=== PATIENT | female | born 1945 | race Caucasian/White ===

== ENCOUNTER 2024-06-12 12:26 | Inpatient (IN) | payer MEDICARE, OTHER ==
[~2024-06-12] VITALS: Ht 167.6 cm; Wt 103.0 kg
[2024-06-12] MEDS: SODIUM CHLORIDE 0.9% 500 ML IV ONE (13:15)
--- NOTE | 2024-06-12 13:21 | ED.PDOC ---
History of Present Illness HPI Comments 79-year-old female who comes in with chief complaint of a syncopal episode. The patient's son-in-law actually called the paramedics and the patient was transported to our facility. The patient was sitting in the restroom on the toilet and as she was straining she had a syncopal episode. It was unknown how long it lasted but she stated that she woke up and she had some left arm pain. She denies any chest pain or shortness for breath. There has been no headache. Chief Complaint: Syncope Time Seen by MD: 12:43 Reviewed Notes: Nurses Notes, Spacer Type Bar And Segment Notes, Medications, Allergies (Allergies to sulfa) Allergies: Uncoded Allergies: SULFA (Allergy, Unknown, 06/12/24) Information Source: Patient, Emergency Med Personnel Mode of Arrival: EMS Severity: Moderate Timing: Minutes Duration: Intermittent Prehospital treatment: Bread Wrapper, IVF Associated signs and symptoms Generalized weakness, syncope Past Medical History PAST MEDICAL HISTORY: Cancer (Breast cancer next), DM, High Lipids, HTN Surgical History: Cholecystectomy, , Denies all surgeries Surgical History (Other): Lumpectomy MEDICAL COLLECTOR History: No Pertinent MEDICAL COLLECTOR History Family History Family History: No family hx of DM, No family hx of Heart nathaniel Social History Smoker: Non-Smoker Alcohol: Denies ETOH Use Drugs: Denies Drug Use Lives In: Home Constitutional: denies: chills, diaphoresis, fatigue, fever, malaise, sweats, weakness, others EENTM: denies: blurred vision, double vision, ear bleeding, ear discharge, ear drainage, ear pain, ear ringing, eye pain, eye redness, hearing loss, mouth pain, mouth swelling, nasal discharge, nose bleeding, nose congestion, nose pain, photophobia, tearing, throat pain, throat swelling, voice changes, others Respiratory: denies: cough, hemoptysis, orthopnea, SOB at rest, shortness of breath, SOB with excertion, stridor, wheezing, others Cardiovascular: reports: syncope; denies: chest pain, dizzy spells, diaphoresis, Dyspnea on exertion, edema, irregular heart beat, left arm pain, lightheadedness, palpitations, PND, others Gastrointestinal: denies: abdomen distended, abdominal pain, blood streaked bowels, constipated, diarrhea, dysphagia, difficulty swallowing, hematemesis, melena, nausea, poor appetite, poor fluid intake, rectal bleeding, rectal pain, vomiting, others Genitourinary: denies: abnormal vagina bleeding, burning, dyspareunia, dysuria, flank pain, frequency, hematuria, incontinence, pain, , vagina discharge, urgency, others Neurological: denies: dizziness, fainting, headache, left sided numbness, left sided weakness, numbness, paresthesia, pre-existing deficit, right sided numbness, right sided weakness, seizure, speech problems, tingling, tremors, weakness, others Musculoskeletal: reports: others (Left arm pain); denies: back pain, gout, joint pain, joint swelling, muscle pain, muscle stiffness, neck pain Integumetry: denies: bruises, change in color, change in hair/nails, dryness, laceration, lesions, lumps, rash, wounds, others Allergic/Immunocompromised: denies: Difficulty Healing, Frequent Infections, Hives, Itching, others Hematologic/Lymphatic: denies: anemia, blood clots, easy bleeding, easy bruising, swollen glands, others Endocrine: denies: excessive hunger, excessive sweating, excessive thirst, excessive urination, flushing, intolerance to cold, intolerance to heat, unexplained weight gain, unexplained weight loss, others Psychiatric: denies: anxiety, bipolar disorder, depression, hopeless, panic disorder, schizophrenia, sleepless, suicidal, others Physical Exam General Appearance: Moderate Distress HEENT: Normal ENT Inspection, Pharynx Normal, TMs Normal Neck: Full Range of Motion, Non-Tender, Normal, Normal Inspection Respiratory: Chest Non-Tender, Lungs Clear, No Accessory Muscle Use, No Respiratory Distress, Normal Breath Sounds Cardiovascular: No Edema, No JVD, No Murmur, No Gallop, Normal Peripheral Pulses, Regular Rate/Rhythm Breast Exam: Deferred Gastrointestinal: No Organomegaly, Non Tender, No Pulsatile Mass, Normal Bowel Sounds, Soft Genitalia: Deferred Pelvic: Deferred Rectal: Deferred Extremities: No calf tenderness, Normal capillary refill, No pedal edema, Tender (Tenderness to the left humeral area with decreased range of motion) Musculoskeletal : Apperance: Normal Neurologic: Alert, lacing presser II-XII nml as Tested, Motor Weakness, Normal Affect, Normal Mood, No Sensory Deficits Cerebellar Function: Normal Reflexes: Normal Skin: Dry, Normal Color, Warm Lymphatic: No Adenopathy Was a procedure done? Was a procedure done?: No EKG EKG : Pulse Rate (adult): 58 Mars: Normal Cardiac Rhythm: NSR Block: None ST: Nonsp (low Voltage) Differential Dx Considerations may include: Syncope, generalized weakness, electrolyte imbalance X-Ray, Labs, Meds, VS Vital Signs Date Time Temp Pulse Resp B/P (MAP) Pulse Ox O2 Delivery O2 Flow Rate FiO2 06/12/24 20:27 61 16 124/61 (82) 100 06/12/24 18:00 64 16 121/58 (79) 100 06/12/24 17:29 97.8 58 16 120/54 (76) 100 97.8 06/12/24 16:27 55 16 126/60 06/12/24 16:17 66 06/12/24 15:57 63 20 103/63 06/12/24 15:47 63 20 99 Room Air* 0 21 06/12/24 15:47 97.8 63 20 103/63 (76) 100 97.8 06/12/24 13:21 58 06/12/24 12:36 98.6 63 16 130/82 (98) 96 06/12/24 12:26 58 Lab Test 06/12/24 19:08 06/12/24 17:32 06/12/24 17:04 06/12/24 14:10 Range/Units Troponin I High Sensitivity 15 12 10 </=34 ng/L POC Glucose 280 H 70-106 mg/dl White Blood Count 18.4 H 4.4-10.8 10^3/uL Red Blood Count 4.98 4.0-5.20 10^6/uL Hemoglobin 15.0 12.2-16.2 g/dL Hematocrit 45.1 36.0-46.0 % Mean Corpuscular Volume 90.5 80.0-100.0 fL Mean Corpuscular Hemoglobin 30.0 28.0-32.0 pg Mean Corpuscular Hemoglobin Concent 33.2 32.0-36.0 g/dL Red Cell Distribution Width 14.4 H 11.8-14.3 % Platelet Count 259 140-450 10^3/uL Mean Platelet Volume 9.0 6.9-10.8 fL Neutrophils (%) (Auto) 92.0 H 37.0-80.0 % Lymphocytes (%) (Auto) 5.3 L 10.0-50.0 % Monocytes (%) (Auto) 2.1 0.0-12.0 % Eosinophils (%) (Auto) 0.2 0.0-7.0 % Basophils (%) (Auto) 0.4 0.0-2.0 % Neutrophils # (Auto) 16.9 H 1.6-8.6 10 ^3/uL Lymphocytes # (Auto) 1.0 0.4-5.4 10 ^3/uL Monocytes # (Auto) 0.4 0-1.3 10 ^3/uL Eosinophils # (Auto) 0 0-0.8 10 ^3/uL Basophils # (Auto) 0.1 0-0.2 10 ^3/uL Nucleated Red Blood Cells 0.0 % Sodium Level 137 136-145 mmol/L Potassium Level 4.1 3.5-5.1 mmol/L Chloride Level 100 98-107 mmol/L Carbon Dioxide Level 26 20-31 mmol/L Anion Gap 11 5-15 Blood Urea Nitrogen 44 H 9-23 mg/dL Creatinine 2.01 H 0.550-1.02 mg/dL Glomerular Filtration Rate Calc 25 >90 mL/min BUN/Creatinine Ratio 21.9 H 10.0-20.0 Serum Glucose 341 H 74-106 mg/dL Calcium Level 10.8 H 8.7-10.4 mg/dL Current Medications Medications (Trade) Dose Ordered Sig/Michelle Route Start Time Stop Time Status Last Admin Sodium Chloride 500 ml @ 500 mls/hr Q1H ONCE IV 06/12/24 13:15 06/12/24 14:14 DC 06/12/24 13:15 Morphine Sulfate 2 mg ONCE ONCE IV 06/12/24 15:45 06/12/24 15:46 DC 06/12/24 15:57 Ondansetron HCl (Zofran) 4 mg ONCE ONCE IV 06/12/24 15:45 06/12/24 15:46 DC 06/12/24 15:58 TECHNIQUE: XY L HUMERUS XRAY Comparison: None FINDINGS/IMPRESSION: : Anterior shoulder dislocation. Comminuted and displaced fracture of the proximal humeral metaphysis. IV Hep-Lock was established The patient was given normal saline as a 500 cc bolus The patient was given morphine 2 mg IV push for the pain The patient was given Zofran 4 mg IV push for the nausea The BUN is 44 and the creatinine is 2.01 The patient was hyperglycemic at 341 The troponin level is negative The CBC shows an elevated white blood cell count of 18.4 which is most likely secondary to the fall An orthopedic surgery consult was obtained. We are concerned about trying to shows secondary to the humeral fracture. At this time, the patient will be admitted. Images Reviewed?: Images reviewed and evaluated by me Time of 1ST Reevaluation: 13:21 Reevaluation 1ST: Unchanged Patient Education/Counseling: Diagnosis, Treatment, Prognosis Family Education/Counseling: No Family Present Departure 1 Departure Time of Disposition: 20:38 Impression: Primary Impression: Autonomic dysfunction Additional Impressions: Anterior dislocation of left shoulder Qualified Codes: S43.015A - Anterior dislocation of left humerus, initial encounter Humeral fracture Qualified Codes: S42.222A - 2-part displaced fracture of surgical neck of left humerus, initial encounter for closed fracture Disposition: ADMITTED INPATIENT Admit to: Tele Condition: Fair Critical Care Note Critical Care Time?: Yes (45 min-critical care time only) Stability Stability form required: Yes Unstable for transfer: Telemetry monitoring (Telemetry monitoring required), ED Physician Assesment (Clinical assesment) Heart Score Heart Score: Heart Score Response (Comments) Value History N/A 0 EKG N/A 0 Age N/A 0 Risk Factors N/A 0 Troponin N/A 0 Total 0 I personally scribed for RAMON FREDERICK MD ([email or web address]) on 06/12/24 at 14:01. Electronically submitted by Olga Ferraro ([email or web address]). RAMON FREDERICK MD Jun 12, 2024 13:21
--- NOTE | 2024-06-12 13:52 | DVH ---
CLINICAL INDICATION: pain TECHNIQUE: XY L HUMERUS XRAY Comparison: None FINDINGS/IMPRESSION: : Anterior shoulder dislocation. Comminuted and displaced fracture of the proximal humeral metaphysis.
[2024-06-12 14:27] LABS: Basophils # (auto) 0.1 10 ^3/uL (0-0.2); Basophils % (auto) 0.4 % (0.0-2.0); Eosinophils # (auto) 0 10 ^3/uL (0-0.8); Eosinophils % (auto) 0.2 % (0.0-7.0); Hematocrit 45.1 % (36.0-46.0); Lymphocytes % (auto) 5.3 % (10.0-50.0); Mean Corpuscular Hgb Conc. 33.2 g/dL (32.0-36.0); Mean Corpuscular Volume 90.5 fL (80.0-100.0); Monocytes # (auto) 0.4 10 ^3/uL (0-1.3); Monocytes % (auto) 2.1 % (0.0-12.0); Neutrophils # (auto) 16.9 10 ^3/uL (1.6-8.6); Platelet Count (auto) 259 10^3/uL (140-450); Red Blood Cells 4.98 10^6/uL (4.0-5.20); Red Cell Distribution Width 14.4 % (11.8-14.3); White Blood Cell 18.4 10^3/uL (4.4-10.8)
[2024-06-12 14:52] LABS: Chloride 100 mmol/L (98-107); Potassium 4.1 mmol/L (3.5-5.1); Sodium 137 mmol/L (136-145)
[2024-06-12 14:53] LABS: Anion Gap 11 (5-15); Carbon Dioxide 26 mmol/L (20-31)
[2024-06-12 14:58] LABS: BUN/Creatinine Ratio 21.9 (10.0-20.0)
[2024-06-12 15:04] LABS: Blood Urea Nitrogen 44 mg/dL (9-23); Calcium 10.8 mg/dL (8.7-10.4); Glucose 341 mg/dL (74-106)
--- NOTE | 2024-06-12 15:17 | ECG ---
[facility] Test Date: 2024-06-12 Test Time: 12:25:21 Pat Name: JESS BRAN Department: ED Room: [address] [place] [address] Gender: F House Calls Nurse Practitioner: SETH : 1945 Requested By: RAMON FREDERICK Order Number: [id number] Reading MD: Joshua Albarado Measurements Intervals [place] Rate: 58 P: -6 MO: 147 QRS: 22 QRSD: 106 T: 43 QT: 448 QTc: 441 Interpretive Statements Sinus rhythm Low voltage, precordial leads Minimal ST elevation, inferior leads Electronically Signed On 06-12-2024 22:27:32 PST by Joshua Albarado Please click the below link to view image of tracing.
[2024-06-12 15:47] VITALS: PULSE 63; RESP 20; O2SAT 99
[2024-06-12] MEDS: MORPHINE SULFATE INJ 2 MG/ml SYRG IV ONE (15:57)
[2024-06-12] MEDS: ONDANSETRON HCL 4 MG/2 ML VIAL IV ONE (15:58)
[2024-06-12 20:00] VITALS: PULSE 76; RESP 18; O2SAT 100
[2024-06-12] MEDS ORDERED: ACETAMINOPHEN 325 MG TAB PO PRN (21:00)
[2024-06-12] MEDS ORDERED: DEXTROSE (50%) 50ML SYRG IV PRN (21:00)
[2024-06-12] MEDS ORDERED: ONDANSETRON HCL 4 MG/2 ML VIAL IV PRN (21:00)
[2024-06-12] MEDS ORDERED: DOCUSATE SOD 100 MG CAP PO PRN (21:00)
[2024-06-12] MEDS ORDERED: hydrALAZINE HCL 20 MG/ML VL IV PRN (21:00)
[2024-06-12] MEDS: ETOMIDATE (2MG/ML) 20ML VIAL IV ONE (21:38)
--- NOTE | 2024-06-12 21:59 | DVHHP2 ---
History of Present Illness Reason for Visit: Syncopal episode History of Present Illness The patient is a 79-year-old female with past medical history of breast cancer, DM, hyperlipidemia, and hypertension who presented to [facility] ED for evaluation of syncopal episode. As reported, depression was sitting in the bathroom on the toilet and had a syncopal episode, so EMS were called by son-in-law. Patient was seen and evaluated in the ED, laboratory data shows WBC 18.4, platelets 259, sodium 137, potassium 4.1, BUN 44, creatinine 2.01, GFR 25, glucose 341, blood pressure 124/61, heart rate 64, temperature 97.8 F, O2 saturation 99% on room air. Left humerus x-ray revealing comminuted and di splaced fracture of the proximal humeral metaphysis, anterior shoulder dislocation. Patient was started on IV antibiotic regimen Rocephin, please see medication orders section in the computer. On my assessment, patient denies chest pain, no headache, no dizziness, no diaphoresis, no shortness of breaths, no nausea, no vomiting, no fever, no chills. Patient was admitted for further evaluation and medical management. Past Medical History Cancer (Breast cancer), DM, High Lipids, HTN Past Surgical History Cholecystectomy, , Lumpectomy Family History Reviewed, noncontributory to the management of this case. Past Social History The patient lives at home, denies smoking, alcohol or illicit drugs abuse. Review of Systems Constitutional: Yes: Weakness; No: Fever, Chills, Sweats, Malaise, Other Eyes: No: Pain, Vision change, Conjunctivae inflammation, Eyelid inflammation, Other, Redness ENT: No: Ear pain, Ear discharge, Nose pain, Nose discharge, Nose congestion, Mouth pain, Mouth swelling, Throat pain, Throat swelling, Other Respiratory: No: Cough, Dry, Shortness of breath, SOB with excertion, Wheezing, Hemoptysis, Pleuritic Pain, Sputum, Wheezing, Other Cardiovascular: Other (Syncope); No: Chest Pain, Palpitations, Orthopnea, Paroxysmal Noc. Dyspnea, Edema, Lt Headedness Gastrointestinal: No: Nausea, Vomiting, Abdominal Pain, Diarrhea, Constipation, Melena, Hematochezia, Other Genitourinary: No Dysuria, No Frequency, No Incontinence, No Hematuria, No Retention, No Other Musculoskeletal: other (Left arm pain) Skin: No: Rash, Lesions, Jaundice, Bruising, Other Neurological: No: Weakness, Numbness, Incoordination, Change in speech, Confusion, Seizures, Other Allergies: Coded Allergies: Penicillins (Verified Allergy, Unknown, UNKNOWN, 06/13/24) Uncoded Allergies: SULFA (Allergy, Unknown, 06/12/24) Medications Current Medications Medications Dose Ordered Sig/Michelle Route Start Time Stop Time Status Last Admin Dose Admin Atorvastatin Calcium 20 mg HS PO 06/12/24 22:00 Hydralazine HCl 10 mg Q6HP PRN IV 06/12/24 21:00 Ceftriaxone Sodium 50 ml @ 100 mls/hr DAILY@09 IV 06/13/24 09:00 Diagnostic Test (Pha) 1 strip IQ4HR 06/13/24 00:00 Insulin Human Regular IQ4HR SC 06/13/24 00:00 Dextrose 50 ml UD PRN IV 06/12/24 21:00 Sodium Chloride 1,000 ml @ 60 mls/hr [id number] IV 06/12/24 21:00 Acetaminophen/ Hydrocodone Bitart 1 tab Q4HP PRN PO 06/12/24 21:00 Ondansetron HCl 4 mg Q4HP PRN IV 06/12/24 21:00 Docusate Sodium 100 mg BIDPRN PRN PO 06/12/24 21:00 Enoxaparin Sodium 30 mg DAILY SC 06/13/24 10:00 Acetaminophen 650 mg Q6HP PRN PO 06/12/24 21:00 Exam Vital Signs Vital Signs Date Time Temp Pulse Resp B/P (MAP) Pulse Ox O2 Delivery O2 Flow Rate FiO2 06/12/24 20:27 61 16 124/61 (82) 100 06/12/24 17:29 97.8 97.8 06/12/24 15:47 Room Air* 0 21 General Appearance: Alert, Oriented X3, Cooperative, No acute distress HEENT: Atraumatic, PERRLA, EOMI, Mucous membr. moist/pink Respiratory: Clear to auscultation, Normal air movement Cardiovascular: Regular rate, Normal S1, Normal S2, No murmurs Abdominal: Normal bowel sounds, Soft, No tenderness, No hepatospenomegaly, No masses Extremities: No clubbing, No cyanosis, No edema, Normal pulses, No tenderness/swelling Skin: No rashes, No breakdown, No significant lesion Neuro: Normal speech, Normal tone, Sensation intact, Cranial nerves 3-12 NL, Reflexes 2+, Other (Generalized weakness) Psych/Mental Status: Mental status NL, Mood NL Labs/Xrays Labs Test 06/12/24 19:08 06/12/24 17:32 06/12/24 14:10 Range/Units Troponin I High Sensitivity 15 </=34 ng/L POC Glucose 280 H 70-106 mg/dl White Blood Count 18.4 H 4.4-10.8 10^3/uL Red Blood Count 4.98 4.0-5.20 10^6/uL Hemoglobin 15.0 12.2-16.2 g/dL Hematocrit 45.1 36.0-46.0 % Mean Corpuscular Volume 90.5 80.0-100.0 fL Mean Corpuscular Hemoglobin 30.0 28.0-32.0 pg Mean Corpuscular Hemoglobin Concent 33.2 32.0-36.0 g/dL Red Cell Distribution Width 14.4 H 11.8-14.3 % Platelet Count 259 140-450 10^3/uL Mean Platelet Volume 9.0 6.9-10.8 fL Neutrophils (%) (Auto) 92.0 H 37.0-80.0 % Lymphocytes (%) (Auto) 5.3 L 10.0-50.0 % Monocytes (%) (Auto) 2.1 0.0-12.0 % Eosinophils (%) (Auto) 0.2 0.0-7.0 % Basophils (%) (Auto) 0.4 0.0-2.0 % Neutrophils # (Auto) 16.9 H 1.6-8.6 10 ^3/uL Lymphocytes # (Auto) 1.0 0.4-5.4 10 ^3/uL Monocytes # (Auto) 0.4 0-1.3 10 ^3/uL Eosinophils # (Auto) 0 0-0.8 10 ^3/uL Basophils # (Auto) 0.1 0-0.2 10 ^3/uL Nucleated Red Blood Cells 0.0 % Sodium Level 137 136-145 mmol/L Potassium Level 4.1 3.5-5.1 mmol/L Chloride Level 100 98-107 mmol/L Carbon Dioxide Level 26 20-31 mmol/L Anion Gap 11 5-15 Blood Urea Nitrogen 44 H 9-23 mg/dL Creatinine 2.01 H 0.550-1.02 mg/dL Glomerular Filtration Rate Calc 25 >90 mL/min BUN/Creatinine Ratio 21.9 H 10.0-20.0 Serum Glucose 341 H 74-106 mg/dL Calcium Level 10.8 H 8.7-10.4 mg/dL PATIENT: JESS BRAN ACCT: [id number] UNIT: [id number] : 1945 LOC: ER ROOM / BED: / AGE / SEX: 79 / F ADM STATUS: REG ER SERVICE [id number] ORDERING PHYSICIAN: RAMON FREDERICK MD PROCEDURE(s): LHUM - L HUMERUS XRAY REASON: pain ORDER NUMBER(s): [id number], ACCESSION NUMBER(s): [id number] CLINICAL INDICATION: pain TECHNIQUE: XY L HUMERUS XRAY Comparison: None FINDINGS/IMPRESSION: : Anterior shoulder dislocation. Comminuted and displaced fracture of the proximal humeral metaphysis. ORDERING PHYSICIAN: RAMON FREDERICK MD PROCEDURE(s): LSHD - L SHOULDER 1V XRAY REASON: post reduction ORDER NUMBER(s): [id number], ACCESSION NUMBER(s): [id number] CLINICAL INFORMATION: 79 years old, Female; post reduction. TECHNIQUE: 3 views of the left shoulder were obtained. COMPARISON: None Findings/impression: Interval reduction of the left glenohumeral joint dislocation. Fracture of the left humeral head/neck. Assessment/Plan Assessment/Plan Anterior dislocation of left shoulder Syncopal episode Anterior dislocation of left humerus, initial encounter Left humeral fracture Leukocytosis, unspecified 2-part displaced fracture of surgical neck of left humerus, initial encounter for closed fracture Plan 1. Admit to telemetry unit 2. Breathing treatment 3. Pain control management 4. IV antibiotic management 5. Management of fluids and electrolytes 6. Consultation for telemetry unit 7. Diagnostic test left humerus x-ray 8. DVT prophylaxis-on Lovenox 9. Repeat labs CBC, CMP in a.m. 10. Home medication reviewed and reconciled 11. Continue with current medical management 12. Treatment plan discussed with patient and RN. Patient verbalized understanding. Plan discussed with: Patient, Other (RN) My Orders Orders - JUANA DENTON DNP Procedure Category Date Status Time Atorvastatin (Lipitor) PHA 06/12/24 In Process 22:00 Hydralazine Injection PHA 06/12/24 In Process (Apresoline Inject 21:00 Consistent DIET 06/13/24 Transmitted Carb(Ccho)Diabetes Breakfast * Orthopedic Consult CONS 06/12/24 Transmitted 20:51 * Cardiology Consult CONS 06/12/24 Transmitted 20:51 *Dr. Ray Abdi CONS 06/12/24 Transmitted -[place] 20:51 Ceftriaxone 1gm/50ml PHA 06/13/24 In Process D5w (Rocephin) 09:00 Blood Culture [place] 06/12/24 In Process 20:51 Glucose Blood PHA 06/13/24 In Process (Accu-Chek Comfort 00:00 Insulin R (Human) PHA 06/13/24 In Process (Insulin R) 00:00 Dextrose 50% Syringe PHA 06/12/24 In Process 21:00 Allergies BRIGIDA 06/12/24 In Process 20:51 Code Status CODE 06/12/24 Transmitted 20:51 Sodium Chloride 0.9% PHA 06/12/24 In Process 21:00 Oxygen Per Hour RT 06/12/24 Transmitted 20:51 Hydrocodone-Acet PHA 06/12/24 In Process 5/325mg Tab ([place] 21:00 Ondansetron Hcl PHA 06/12/24 In Process (Zofran) 21:00 Docusate Sodium PHA 06/12/24 In Process Capsule (Colace 21:00 Fall Risk Precautions BRIGIDA 06/12/[address] 20:51 Complete Blood Count LAB 06/13/24 Verified 04:00 Comprehensive LAB 06/13/24 Verified Metabolic Panel 04:00 Condition: Serious BRIGIDA 06/12/24 In Process 20:51 Acetaminophen Tablet PHA 06/12/24 In Process (Tylenol Tablet) 21:00 Sequential BRIGIDA 06/12/24 In Process Compression Device Enoxaparin Sodium PHA 06/13/24 In Process (Lovenox) 10:00 Problem List: (1) Anterior dislocation of left shoulder (2) Syncopal episodes (3) Leukocytosis, unspecified (4) Left humeral fracture (5) Anterior dislocation of left humerus, initial encounter (6) 2-part displaced fracture of surgical neck of left humerus, initial encounter for closed fracture Date of Service: Jun 12, 2024 Billing Provider: JUANA DENTON DNP Common Visit Codes: 40041-AOMPUKZ INP/OBS CARE (HIGH) JUANA DENTON DNP Jun 12, 2024 21:59
[2024-06-12] MEDS ORDERED: NITROGLYCERIN 0.4 MG SL TAB SL PRN (22:00)
[2024-06-12] MEDS ORDERED: MORPHINE SULFATE INJ 2 MG/ml SYRG IV PRN (22:00)
--- NOTE | 2024-06-12 22:05 | DVH ---
CLINICAL INFORMATION: 79 years old, Female; post reduction. TECHNIQUE: 3 views of the left shoulder were obtained. COMPARISON: None Findings/impression: Interval reduction of the left glenohumeral joint dislocation. Fracture of the l eft humeral head / neck.
[2024-06-12] MEDS: SODIUM CHLORIDE 0.9% 1,000 ML IV SCH (22:08)
[2024-06-12] MEDS: cefTRIAXone 1GM/50ML D5W 50 ML IV ONE (22:09)
[2024-06-12] MEDS: ATORVASTATIN 20 MG TAB PO SCH (22:09)
[2024-06-13] MEDS: ACCU-CHEK COMFORT CURVE STRIP VI SCH
[2024-06-13] MEDS: InsuLIN REG 1unit/0.01ml Soln (100units/ml) SC SCH (00:34)
[2024-06-13 05:20] LABS: Basophils # (auto) 0.1 10 ^3/uL (0-0.2); Basophils % (auto) 0.5 % (0.0-2.0); Eosinophils # (auto) 0 10 ^3/uL (0-0.8); Eosinophils % (auto) 0.1 % (0.0-7.0); Hematocrit 39.6 % (36.0-46.0); Hemoglobin 13.2 g/dL (12.2-16.2); Lymphocytes # (auto) 2.3 10 ^3/uL (0.4-5.4); Mean Corpuscular Hemoglobin 30.4 pg (28.0-32.0); Mean Corpuscular Hgb Conc. 33.4 g/dL (32.0-36.0); Mean Corpuscular Volume 91.1 fL (80.0-100.0); Monocytes # (auto) 0.9 10 ^3/uL (0-1.3); Monocytes % (auto) 5.2 % (0.0-12.0); Neutrophils % (auto) 80.2 % (37.0-80.0); Platelet Count (auto) 252 10^3/uL (140-450); Red Blood Cells 4.35 10^6/uL (4.0-5.20); Red Cell Distribution Width 14.3 % (11.8-14.3); White Blood Cell 16.3 10^3/uL (4.4-10.8)
[2024-06-13 05:46] LABS: Alanine Aminotransferase 21 U/L (7-40); Albumin 4.1 g/dL (3.2-4.8); Anion Gap 11 (5-15); Aspartate Aminotransferase 21 U/L (13-40); Calcium 10.1 mg/dL (8.7-10.4); Carbon Dioxide 25 mmol/L (20-31); Potassium 3.7 mmol/L (3.5-5.1); Sodium 143 mmol/L (136-145)
[2024-06-13 05:47] LABS: Bilirubin, Total 0.8 mg/dL (0.2-1.0); Total Protein 6.3 g/dL (5.7-8.2)
[2024-06-13 06:00] LABS: Alkaline Phosphatase 137 U/L (46-116); Chloride 107 mmol/L (98-107); Glucose 145 mg/dL (74-106)
[2024-06-13 06:03] LABS: BUN/Creatinine Ratio 21.3 (10.0-20.0)
[2024-06-13 06:05] LABS: Blood Urea Nitrogen 37 mg/dL (9-23)
[2024-06-13 08:00] VITALS: PULSE 57; RESP 16; O2SAT 98
[2024-06-13] MEDS ORDERED: cefTRIAXone 1GM/50ML D5W 50 ML IV SCH (09:00)
--- NOTE | 2024-06-13 10:03 | DVH ---
CT HEAD WITHOUT CONTRAST INDICATION: syncope EXAM DATE: 06/13/2024 09:26 AM COMPARISON: None RADIATION DOSE: CTDIvol: 53.33 mGy, DLP: 863.9 mGy*cm PROCEDURE: CT scans of the head were obtained from the vertex to the skull base. Sagittal and coronal reconstructions were provided. All CT scans at this medical facility are performed using dose modulation techniques as appropriate t o a performed exam including the following: Automated exposure control was utilized; adjustment of th e MA and/or KV according to patient size; and use of iterative reconstruction technique. FINDINGS: There is sulcal and ventricular prominence. The brainshows normal morphology and rush-whi te matter differentiation, without intracranial hemorrhage, extra-axial fluid collection, mass effect or acute large vessel infarct. The ventricles are normal in size. The basal cisterns are patent. The skull and visible facial bones are intact. The paranasal sinuses, mastoid air cells and middle ear c avities are well-aerated. The soft tissues of the scalp are unremarkable. IMPRESSION: No acute intracranial abnormality.
--- NOTE | 2024-06-13 10:15 | DVHINCON2 ---
Date of service: Jun 13, 2024 Referring Physician Christiano Sapp, nurse practitioner Reason for Consultation Acute kidney injury History of Present Illness Patient is a 79-year-old obese female with past medical history of breast cancer Cancer, DM, High Lipids, and HTN who was admitted after syncopal episode and collapse in the bathroom. On admission patient found to have elevated BUN and creatinine nephrology is consulted for acute kidney injury Past Medical History PAST MEDICAL HISTORY: Breast cancer, DM, High Lipids, HTN Past Surgical History Surgical History: Cholecystectomy, , Lumpectomy Allergies: Coded Allergies: Penicillins (Verified Allergy, Unknown, UNKNOWN, 06/13/24) Sulfa Antibiotics (Verified Allergy, Unknown, 06/13/24) Home Meds Reported Medications Potassium Chloride (Klor-Con M10) 10 Meq Tab, 1 TAB PO DAILY, #30 TAB 5 Refills 06/14/24 Furosemide (Lasix) 80 Mg Tab, 80 MG PO DAILY, TAB 06/14/24 Atenolol (Atenolol) 25 Mg Tab, 25 MG PO DAILY for 30 Days, MG 06/14/24 Empagliflozin (Jardiance) 25 Mg Tab, 25 MG PO DAILY, TAB 06/14/24 Current Medications Current Medications Medications (Trade) Dose Ordered Sig/Michelle Route PRN Reason Start Time Stop Time Status Last Admin Ceftriaxone Sodium 50 ml @ 100 mls/hr Q24H IV 06/13/24 22:00 06/13/24 20:16 Morphine Sulfate 1 mg Q3HP PRN IV SEVERE PAIN (7-10 PAIN SCALE) 06/13/24 16:45 Enoxaparin Sodium (Lovenox) 40 mg DAILY SC 06/14/24 10:00 06/14/24 08:58 Review of Systems All 12 item review of systems reviewed with the patient nonsignificant except what is mentioned in the history of present illness H&P Exam Vital Signs/I&O Vital Sign Date Time Temp Pulse Resp B/P (MAP) Pulse Ox O2 Delivery O2 Flow Rate FiO2 06/14/24 09:00 97.4 61 17 128/50 (76) 96 97.4 06/13/24 20:00 Nasal Cannula* 2 28 Intake and Output 06/13/24 06/14/24 19:00 07:00 Intake Total 120 ml 100 ml Output Total 100 ml Balance 120 ml 0 ml Intake Oral 120 ml 50 ml IV Total 50 ml Output Urine Total 100 ml Physical Exam Patient is awake and alert Lungs clear to auscultation bilaterally Cardiac exam regular rate and rhythm GI soft nontender normal Extremities no clubbing cyanosis or edema Neuro nonfocal Labs/Diagnostic Data Labs/Diagnostic Data Laboratory Tests Test 06/14/24 08:22 06/14/24 06:37 06/13/24 23:54 06/13/24 20:11 Range/Units POC Glucose 133 H 100 131 H 70-106 mg/dl White Blood Count 11.6 #H 4.4-10.8 10^3/uL Red Blood Count 4.31 4.0-5.20 10^6/uL Hemoglobin 12.8 12.2-16.2 g/dL Hematocrit 39.7 36.0-46.0 % Mean Corpuscular Volume 92.2 80.0-100.0 fL Mean Corpuscular Hemoglobin 29.7 28.0-32.0 pg Mean Corpuscular Hemoglobin Concent 32.2 32.0-36.0 g/dL Red Cell Distribution Width 14.3 11.8-14.3 % Platelet Count 185 140-450 10^3/uL Mean Platelet Volume 9.4 6.9-10.8 fL Neutrophils (%) (Auto) 85.5 H 37.0-80.0 % Lymphocytes (%) (Auto) 8.9 L 10.0-50.0 % Monocytes (%) (Auto) 4.6 0.0-12.0 % Eosinophils (%) (Auto) 0.6 0.0-7.0 % Basophils (%) (Auto) 0.4 0.0-2.0 % Neutrophils # (Auto) 9.9 H 1.6-8.6 10 ^3/uL Lymphocytes # (Auto) 1.0 0.4-5.4 10 ^3/uL Monocytes # (Auto) 0.5 0-1.3 10 ^3/uL Eosinophils # (Auto) 0.1 0-0.8 10 ^3/uL Basophils # (Auto) 0 0-0.2 10 ^3/uL Nucleated Red Blood Cells 0.0 % Sodium Level 143 136-145 mmol/L Potassium Level 3.7 3.5-5.1 mmol/L Chloride Level 107 98-107 mmol/L Carbon Dioxide Level 24 20-31 mmol/L Anion Gap 12 5-15 Blood Urea Nitrogen 30 H 9-23 mg/dL Creatinine 1.57 H 0.550-1.02 mg/dL Glomerular Filtration Rate Calc 34 >90 mL/min BUN/Creatinine Ratio 19.1 10.0-20.0 Serum Glucose 130 H 74-106 mg/dL Calcium Level 9.6 8.7-10.4 mg/dL Test 06/13/24 16:09 06/13/24 13:55 06/13/24 13:02 06/13/24 10:50 Range/Units POC Glucose 131 H 151 H 70-106 mg/dl Urine Color Light-yellow Yellow Urine Clarity Turbid H Clear Urine pH 5.5 5.0-9.0 Urine Specific [place] 1.024 1.001-1.035 Urine Protein Trace H Negative Urine Ketones Trace Negative Urine Blood Negative Negative /uL Urine Nitrite Negative Negative Urine Bilirubin Negative Negative Urine Urobilinogen Normal Negative mg/dL Urine Leukocyte Esterase 3+ Negative /uL Urine RBC 13 0 - 4 /hpf Urine Microscopic WBC 20 H 0-5 /HPF Urine Squamous Epithelial Cells Mod <5 /hpf Urine Bacteria Few H None Seen /hpf Urine Mucus Few None Seen Urine Creatinine 81.47 30.0-125.0 mg/dL Urine Protein/Creatinine Ratio 0.51 Urine Sodium 24 L 40-220 mmol/L Urine Glucose 4+ H Normal mg/dL Urine Total Protein 41.9 H 1-14 mg/dL Parathyroid Hormone (Intact) 88.2 H 18.4-80.1 pg/mL Test 06/13/24 10:09 06/13/24 08:16 06/13/24 04:57 06/13/24 03:57 Range/Units Prothrombin Time 10.7 9.3-11.8 sec Prothrombin Time INR 1.01 0.9-1.15 Activated Partial Thromboplast Time 26.5 24.5-34.5 SEC D-Dimer, Quantitative 2.27 H 0.0-0.49 mg/L FEU POC Glucose 126 H 138 H 70-106 mg/dl White Blood Count 16.3 H 4.4-10.8 10^3/uL Red Blood Count 4.35 4.0-5.20 10^6/uL Hemoglobin 13.2 12.2-16.2 g/dL Hematocrit 39.6 # 36.0-46.0 % Mean Corpuscular Volume 91.1 80.0-100.0 fL Mean Corpuscular Hemoglobin 30.4 28.0-32.0 pg Mean Corpuscular Hemoglobin Concent 33.4 32.0-36.0 g/dL Red Cell Distribution Width 14.3 11.8-14.3 % Platelet Count 252 140-450 10^3/uL Mean Platelet Volume 9.0 6.9-10.8 fL Neutrophils (%) (Auto) 80.2 H 37.0-80.0 % Lymphocytes (%) (Auto) 14.0 10.0-50.0 % Monocytes (%) (Auto) 5.2 0.0-12.0 % Eosinophils (%) (Auto) 0.1 0.0-7.0 % Basophils (%) (Auto) 0.5 0.0-2.0 % Neutrophils # (Auto) 13.0 H 1.6-8.6 10 ^3/uL Lymphocytes # (Auto) 2.3 0.4-5.4 10 ^3/uL Monocytes # (Auto) 0.9 0-1.3 10 ^3/uL Eosinophils # (Auto) 0 0-0.8 10 ^3/uL Basophils # (Auto) 0.1 0-0.2 10 ^3/uL Nucleated Red Blood Cells 0.0 % Sodium Level 143 # 136-145 mmol/L Potassium Level 3.7 3.5-5.1 mmol/L Chloride Level 107 98-107 mmol/L Carbon Dioxide Level 25 20-31 mmol/L Anion Gap 11 5-15 Blood Urea Nitrogen 37 H 9-23 mg/dL Creatinine 1.74 H 0.550-1.02 mg/dL Glomerular Filtration Rate Calc 30 >90 mL/min BUN/Creatinine Ratio 21.3 H 10.0-20.0 Serum Glucose 145 H 74-106 mg/dL Hemoglobin A1c 12.3 H <5.7 % A1C Calcium Level 10.1 8.7-10.4 mg/dL Phosphorus Level 3.9 2.4-5.1 mg/dL Magnesium Level 2.6 1.6-2.6 mg/dL Total Bilirubin 0.8 0.2-1.0 mg/dL Aspartate Amino Transferase (AST) 21 13-40 U/L Alanine Aminotransferase (ALT) 21 7-40 U/L Alkaline Phosphatase 137 H 46-116 U/L B-Type Natriuretic Peptide 94.64 0-100 pg/mL Total Protein 6.3 5.7-8.2 g/dL Albumin 4.1 3.2-4.8 g/dL Vitamin B12 Level 609 211-911 pg/mL Vitamin D 25-Hydroxy 32.6 30.0-100 ng/mL Thyroid Stimulating Hormone (TSH) 2.24 0.55-4.78 uIU/mL Test 06/13/24 00:15 06/12/24 19:08 06/12/24 17:32 06/12/24 17:04 Range/Units POC Glucose 214 H 280 H 70-106 mg/dl Troponin I High Sensitivity 15 12 </=34 ng/L Test 06/12/24 14:10 Range/Units White Blood Count 18.4 H 4.4-10.8 10^3/uL Red Blood Count 4.98 4.0-5.20 10^6/uL Hemoglobin 15.0 12.2-16.2 g/dL Hematocrit 45.1 36.0-46.0 % Mean Corpuscular Volume 90.5 80.0-100.0 fL Mean Corpuscular Hemoglobin 30.0 28.0-32.0 pg Mean Corpuscular Hemoglobin Concent 33.2 32.0-36.0 g/dL Red Cell Distribution Width 14.4 H 11.8-14.3 % Platelet Count 259 140-450 10^3/uL Mean Platelet Volume 9.0 6.9-10.8 fL Neutrophils (%) (Auto) 92.0 H 37.0-80.0 % Lymphocytes (%) (Auto) 5.3 L 10.0-50.0 % Monocytes (%) (Auto) 2.1 0.0-12.0 % Eosinophils (%) (Auto) 0.2 0.0-7.0 % Basophils (%) (Auto) 0.4 0.0-2.0 % Neutrophils # (Auto) 16.9 H 1.6-8.6 10 ^3/uL Lymphocytes # (Auto) 1.0 0.4-5.4 10 ^3/uL Monocytes # (Auto) 0.4 0-1.3 10 ^3/uL Eosinophils # (Auto) 0 0-0.8 10 ^3/uL Basophils # (Auto) 0.1 0-0.2 10 ^3/uL Nucleated Red Blood Cells 0.0 % Sodium Level 137 136-145 mmol/L Potassium Level 4.1 3.5-5.1 mmol/L Chloride Level 100 98-107 mmol/L Carbon Dioxide Level 26 20-31 mmol/L Anion Gap 11 5-15 Blood Urea Nitrogen 44 H 9-23 mg/dL Creatinine 2.01 H 0.550-1.02 mg/dL Glomerular Filtration Rate Calc 25 >90 mL/min BUN/Creatinine Ratio 21.9 H 10.0-20.0 Serum Glucose 341 H 74-106 mg/dL Calcium Level 10.8 H 8.7-10.4 mg/dL Troponin I High Sensitivity 10 </=34 ng/L Assessment Acute kidney injury superimposed Chronic Kidney Disease secondary hemodynamic mediated Diabetes mellitus type 2 Hypotension Syncope Dislocated left shoulder Fracture left proximal humerus metaphysis Hypercalcemia likely due to dehydration Recommendations Closely monitor fluid and electrolytes Avoid nephrotoxic medications Strict I&Os Check urinalysis urine lytes and protein Check kidney ultrasound IV fluid hydration Insulin sliding scale Orthopedic consult We will continue to follow Patient seen and examined by myself in the ER bed 10. I discussed my plan of care with the patient, her daughter and the primary nurse at the bedside Like to thank Christiano for the consult, will follow up Plan discussed with: Patient, Daughter ISAEL JAMIL MD Jun 13, 2024 10:15
[2024-06-13] MEDS: ENOXAPARIN SOD 30 MG/0.3 ML SYRINGE SC SCH (10:20)
--- NOTE | 2024-06-13 10:25 | DVHCONRES ---
Date Seen: Jun 13, 2024 Resident Creating Document: MARIXA KENNEDY RESIDENT Referring Physician LLUVIA Sapp Reason for Consultation Cardiology consult for syncope History of Present Illness This is a 79-year-old female who comes into the ED with chief complaint of syncopal episode. She has a past medical history relevant for type 2 diabetes, hyperlipidemia, hypertension, breast cancer on remission, last chemotherapy was six years ago. Surgical history of cholecystectomy, C-sections x2, lumpectomy. Family history: Unremarkable She has a history: Denies any smoking, alcohol or illicit drug abuse. Patient stated that yesterday she was sitting in the toilet, straining, when suddenly she passed out, she states that before this happened, she denied any headache, visual changes, chest pain, shortness of breath, palpitations, numbness, weakness. She does not remember anything after that. She stated that when she woke up she was lying on her left side, with severe pain on her left arm and weakness of her legs, she crawled her way out of the bathroom and called one of his family members, whom dial 911. She denies any prior episode of syncope. On arrival to the ED, a left arm extra revealed a dislocation and a fracture of the humerus, patient was given antiemetic and analgesics and her left arm was successfully reduced. Orthopedist was consulted. Blood work revealed leukocytosis, likely reactive. Elevated BUN and creatinine, possibly prerenal JOSEE. Hyperglycemia. Troponins were within normal limits x3. Initial EKG revealed sinus bradycardia, heart rate of 58, normal axis, no significant ST changes, T-wave flattening in V1, V2 and V3. On my assessment, patient states feeling well denied any significant chest pain, shortness of breath, dizziness, lightheadedness, abdominal pain, nausea, vomiting, numbness, weakness. She only stated having left arm pain. Allergies: Coded Allergies: Penicillins (Verified Allergy, Unknown, UNKNOWN, 06/13/24) Sulfa Antibiotics (Verified Allergy, Unknown, 06/13/24) Current Medications Current Medications Medications (Trade) Dose Ordered Sig/Michelle Route PRN Reason Start Time Stop Time Status Last Admin Atorvastatin Calcium (Lipitor) 20 mg HS PO 06/12/24 22:00 06/12/24 22:09 Hydralazine HCl (Apresoline Injection) 10 mg Q6HP PRN IV SBP>150 06/12/24 21:00 Ceftriaxone Sodium 50 ml @ 100 mls/hr DAILY@09 IV 06/13/24 09:00 06/13/24 02:18 DC Diagnostic Test (Pha) (Accu-Chek Comfort Curve T) 1 strip IQ4HR 06/13/24 00:00 06/13/24 08:15 Insulin Human Regular (InsuLIN R) IQ4HR SC 06/13/24 00:00 06/13/24 00:34 Dextrose 50 ml UD PRN IV Blood Sugar LESS THAN 60 06/12/24 21:00 Sodium Chloride 1,000 ml @ 60 mls/hr [id number] IV 06/12/24 21:00 06/12/24 22:08 Acetaminophen/ Hydrocodone Bitart ([place] 5/325MG Tab) 1 tab Q4HP PRN PO MODERATE PAIN (4-6 PAIN SCALE) 06/12/24 21:00 Ondansetron HCl (Zofran) 4 mg Q4HP PRN IV NAUSEA / VOMITING 06/12/24 21:00 Docusate Sodium (Colace Capsule) 100 mg BIDPRN PRN PO FOR CONSTIPATION 06/12/24 21:00 Enoxaparin Sodium (Lovenox) 30 mg DAILY SC 06/13/24 10:00 Acetaminophen (Tylenol Tablet) 650 mg Q6HP PRN PO PAIN SCALE 1-3 OR TEMP>100.4 06/12/24 21:00 Nitroglycerin (Ntrostat Sublingual) 0.4 mg Q5MINP PRN SL FOR CHEST PAIN 06/12/24 22:00 Morphine Sulfate 2 mg Q30M PRN IV FOR CHEST PAIN 06/12/24 22:00 Ceftriaxone Sodium 50 ml @ 100 mls/hr Q24H IV 06/13/24 22:00 Review of Systems Constitutional: Patient denies fevers, chills, sweats and weight changes. Eyes: Patient denies any visual symptoms. Ears, Nose, and Throat: No difficulties with hearing. No symptoms of rhinitis or sore throat. Cardiovascular: Patient denies chest pains, palpitations, orthopnea and paroxysmal nocturnal dyspnea. Respiratory: No dyspnea on exertion, no wheezing or cough. GI: No nausea, vomiting, diarrhea, constipation, abdominal pain, hematochezia or melena. : No urinary hesitancy or dribbling. No nocturia or urinary frequency. No abnormal urethral discharge. Musculoskeletal: Left arm pain Neurologic: No chronic headaches, no seizures. Patient denies numbness, tingling or weakness. Psychiatric: Patient denies problems with mood disturbance. No problems with anxiety. Endocrine: No excessive urination or excessive thirst. Dermatologic: Patient denies any rashes or skin changes. Vital Signs Vital Signs Date Time Temp Pulse Resp B/P (MAP) Pulse Ox O2 Delivery O2 Flow Rate FiO2 06/13/24 08:00 97.8 57 16 128/54 (78) 98 97.8 06/13/24 08:00 Nasal Cannula* 2 28 Physical Exam General: Awake, alert, comfortable appearing, in no acute distress. HEENT: Head is normocephalic and atraumatic. Pupils are equal, round, and reactive to light. Extraocular muscles are intact. No nasal discharge. No facial trauma. Intraoral exam shows moist mucous membranes with no tonsillar enlargement or exudate. Neck: Supple with no cervical lymphadenopathy No meningismus. No goiter. Heart: Regular rate without murmur, rub, or gallop. Lungs: Equal breath sounds bilaterally with no wheezing, rales, or rhonchi. There is no chest wall tenderness or instability. Abdomen: No external sign of injury. Bowel sounds are present. Abdomen is soft, nontender. No rebound, no guarding, no rigidity. There are no palpable masses. There is no flank pain on exam. Extremities: Strong peripheral pulses. Mild nonpitting lower leg edema. Reduced range of motion and pain of left arm, sling in left arm Skin: No rash. Neurologic: Cranial nerves II-XII intact without motor, sensory, or cerebellar deficit, no asterixis. Labs/Diagnostic Data Labs Test 06/13/24 08:16 06/13/24 04:57 06/12/24 19:08 Range/Units POC Glucose 126 H 70-106 mg/dl White Blood Count 16.3 H 4.4-10.8 10^3/uL Red Blood Count 4.35 4.0-5.20 10^6/uL Hemoglobin 13.2 12.2-16.2 g/dL Hematocrit 39.6 # 36.0-46.0 % Mean Corpuscular Volume 91.1 80.0-100.0 fL Mean Corpuscular Hemoglobin 30.4 28.0-32.0 pg Mean Corpuscular Hemoglobin Concent 33.4 32.0-36.0 g/dL Red Cell Distribution Width 14.3 11.8-14.3 % Platelet Count 252 140-450 10^3/uL Mean Platelet Volume 9.0 6.9-10.8 fL Neutrophils (%) (Auto) 80.2 H 37.0-80.0 % Lymphocytes (%) (Auto) 14.0 10.0-50.0 % Monocytes (%) (Auto) 5.2 0.0-12.0 % Eosinophils (%) (Auto) 0.1 0.0-7.0 % Basophils (%) (Auto) 0.5 0.0-2.0 % Neutrophils # (Auto) 13.0 H 1.6-8.6 10 ^3/uL Lymphocytes # (Auto) 2.3 0.4-5.4 10 ^3/uL Monocytes # (Auto) 0.9 0-1.3 10 ^3/uL Eosinophils # (Auto) 0 0-0.8 10 ^3/uL Basophils # (Auto) 0.1 0-0.2 10 ^3/uL Nucleated Red Blood Cells 0.0 % Sodium Level 143 # 136-145 mmol/L Potassium Level 3.7 3.5-5.1 mmol/L Chloride Level 107 98-107 mmol/L Carbon Dioxide Level 25 20-31 mmol/L Anion Gap 11 5-15 Blood Urea Nitrogen 37 H 9-23 mg/dL Creatinine 1.74 H 0.550-1.02 mg/dL Glomerular Filtration Rate Calc 30 >90 mL/min BUN/Creatinine Ratio 21.3 H 10.0-20.0 Serum Glucose 145 H 74-106 mg/dL Calcium Level 10.1 8.7-10.4 mg/dL Magnesium Level 2.6 1.6-2.6 mg/dL Total Bilirubin 0.8 0.2-1.0 mg/dL Aspartate Amino Transferase (AST) 21 13-40 U/L Alanine Aminotransferase (ALT) 21 7-40 U/L Alkaline Phosphatase 137 H 46-116 U/L Total Protein 6.3 5.7-8.2 g/dL Albumin 4.1 3.2-4.8 g/dL Troponin I High Sensitivity 15 </=34 ng/L Assessment Syncope, likely reflex syncope: situational syncope, vasovagal. rule out cardiogenic, neurogenic origin. Orthostatic syncope Sinus bradycardia Type 2 diabetes Hypertension Hyperlipidemia Acute humeral fracture Acute anterior dislocation of left shoulder status post closed reduction JOSEE, likely prerenal Leukocytosis, likely reactive History of breast cancer on remission Obesity Plan/Recommendation Ordered TSH, B12, magnesium, D-dimer, BNP, hemoglobin A1c, urine sodium, urine creatinine. Ordered head CT came back unremarkable, carotid Doppler came back unremarkable, echocardiogram showed an ejection fraction 55%, aortic sclerosis Ordered orthostatic vitals Pending ortho recommendations for left humeral fracture Continue monitoring through telemetry Held blood pressure medications given soft blood pressure, given soft blood pressures and bradycardia we will recommend holding beta-blockers and reassessing antihypertensive medications on discharge Tight glucose control Case was discussed with Dr. Palafox agree with [employer] plan formulated together vasovagal syncope totally uncontrolled DM< at risk for autonomic dysfunction wear compression stockigns, consider decreasing BP meds, Plan discussed with: Patient MARIXA KENNEDY RESIDENT Jun 13, 2024 10:25 SWEETIE PALAFOX MD Jun 13, 2024 17:56
[2024-06-13 10:57] LABS: INR 1.01 (0.9-1.15); Partial Thromboplastin Time 26.5 SEC (24.5-34.5); Prothrombin Time 10.7 sec (9.3-11.8)
[2024-06-13] MEDS: HYDROcodone-ACET 5/325MG TAB PO PRN (11:12)
--- NOTE | 2024-06-13 11:21 | DVH ---
Carotid Duplex Date: 06/13/2024 10:13 AM Clinical History: syncope Comparison: None Technique: Duplex Doppler evaluation of the extracranial carotid and vertebral arteries including color Doppler and spectral/pulsed waveform analysis was performed. Findings: RIGHT SIDE: The peak systolic velocities are 124 cm/s in the distal CCA and 113 cm/s in the proximal ICA.The ICA/ CCA ratio is less than 1. The external carotid artery is patent with peak systolic velocity of 102 cm/s proximally. There is appropriate antegrade flow in the right vertebral artery. LEFT SIDE: The peak systolic velocities are 88 cm/s in the distal CCA and 84 cm/s in the proximal ICA. The ICA/ CCA ratio is less than 1. The external carotid artery is patent with peak systolic velocity of 108 cm/s proximally. There is appropriate antegrade flow in the left vertebral artery. IMPRESSION: No hemodynamically significant stenosis noted in the right carotid system. No hemodynamically significant stenosis noted in the left carotid system. Reference: Radiology 2003; 229:[id number]
--- NOTE | 2024-06-13 11:22 | DVH ---
INDICATION: hue TECHNIQUE: Multiple real-time sonographic images of the kidneys and bladder were obtained. COMPARISON: None FINDINGS: The right kidney measures 9.5 cm in length, which is normal in size. There is increased echogenicity of the right kidney. No hydronephrosis. The left kidney measures 10.6 cm in length, which is normal in size. There is increased echogenicity of the left kidney. No hydronephrosis. There is a left renal cyst measuring 0.9 cm. No large intraluminal masses are seen in the bladder. Prior to voiding the bladder volume measures volume 261 cc. Following voiding, the bladder volume residual measures 0 cc. IMPRESSION: Echogenic bilateral kidneys suggestive of chronic medical renal disease. No hydronephrosis.
--- NOTE | 2024-06-13 11:43 | DVH ---
EXAM: XY CHEST PORTABLE Indication: sob Technique: Single frontal view of the chest was obtained Comparison: None FINDINGS: Lines and Tubes: None Lungs: No focal consolidation. Pleura: No effusion. No pneumothorax. Cardiomediastinal contours: Unremarkable Bones: No acute osseous abnormality. IMPRESSION: No acute cardiopulmonary disease.
[2024-06-13 14:18] LABS: Urine Bacteria FEW /hpf (None Seen); Urine Blood Negative /uL (Negative); Urine Clarity Turbid (Clear); Urine Color Light-Yellow (Yellow); Urine Mucus FEW (None Seen); Urine Protein, UAD TRACE (Negative); Urine Specific Gravity 1.024 (1.001-1.035); Urine Squamous Epithelial Cell MOD /hpf (<5); Urine Urobilinogen Normal (Negative); Urine WBC 20 /HPF (0-5); Urine pH 5.5 (5.0-9.0)
[2024-06-13 14:31] LABS: Protein, Urine 41.9 mg/dL (1-14)
[2024-06-13 14:33] LABS: Creatinine, Urine 81.47 mg/dL (30.0-125.0); Urine Protein/Creatinine Ratio 0.51
[2024-06-13 16:41] VITALS: BP 124/66; PULSE 55; RESP 18; TEMP 97.7; O2SAT 100
--- NOTE | 2024-06-13 16:41 | DVHPN2 ---
Subjective Patient continues to report having left shoulder pain. Reviewed: Care Plan, H&P, Labs, Medications Changes from previous H/P or p: No Changes General: Per HPI Eyes: No Pain, No Vision change, No Conjunctivae inflammation, No Eyelid inflammation, No Other, No Redness ENT: No Ear pain, No Ear discharge, No Nose pain, No Nose discharge, No Nose congestion, No Mouth pain, No Mouth swelling, No Throat pain, No Throat swelling, No Other Cardiovascular: No Chest Pain, No Palpitations, No Orthopnea, No Paroxysmal Noc. Dyspnea, No Edema, No Lt Headedness; Other (Syncope) Respiratory: No Cough, No Dry, No Shortness of breath, No SOB with excertion, No Wheezing, No Hemoptysis, No Pleuritic Pain, No Sputum, No Other Gastrointestinal: No Nausea, No Vomiting, No Abdominal Pain, No Diarrhea, No Constipation, No Melena, No Hematochezia, No Other Genitourinary: No Dysuria, No Frequency, No Incontinence, No Hematuria, No Retention, No Other Musculoskeletal: other (Left arm pain) Skin: No Rash, No Lesions, No Jaundice, No Bruising, No Other Objective Vitals Vital Signs Date Time Temp Pulse Resp B/P (MAP) Pulse Ox O2 Delivery O2 Flow Rate FiO2 06/13/24 14:00 56 14 108/46 (66) 100 06/13/24 08:00 97.8 97.8 06/13/24 08:00 Nasal Cannula* 2 28 Intake/Output Intake and Output 06/13/24 07:00 Intake Total 500 ml Balance 500 ml Intake IV Total 500 ml General Appearance: Alert, Oriented X3, Cooperative, mild distress HEENT: Atraumatic, PERRLA Lungs: Clear to auscultation, Normal air movement Cardiovascular: Normal S1, Normal S2, Other (Sinus bradycardia) Musculoskeletal: Normal sensory function, Normal motor function Extremities: Other (Right shoulder deformity) Neuro: Normal gait, Normal speech Psych/Mental Status: Mental status NL, Mood NL Medications Current Medications Medications Dose Ordered Sig/Michelle Route Start Time Stop Time Status Last Admin Dose Admin Atorvastatin Calcium 20 mg HS PO 06/12/24 22:00 06/12/24 22:09 20 MG Hydralazine HCl 10 mg Q6HP PRN IV 06/12/24 21:00 Diagnostic Test (Pha) 1 strip IQ4HR 06/13/24 00:00 06/13/24 16:18 1 STRIP Insulin Human Regular IQ4HR SC 06/13/24 00:00 06/13/24 16:23 2 UNITS Dextrose 50 ml UD PRN IV 06/12/24 21:00 Sodium Chloride 1,000 ml @ 60 mls/hr [id number] IV 06/12/24 21:00 06/13/24 13:58 60 MLS/HR Acetaminophen/ Hydrocodone Bitart 1 tab Q4HP PRN PO 06/12/24 21:00 06/13/24 11:12 1 TAB Ondansetron HCl 4 mg Q4HP PRN IV 06/12/24 21:00 Docusate Sodium 100 mg BIDPRN PRN PO 06/12/24 21:00 Enoxaparin Sodium 30 mg DAILY SC 06/13/24 10:00 06/13/24 10:20 30 MG Acetaminophen 650 mg Q6HP PRN PO 06/12/24 21:00 Nitroglycerin 0.4 mg Q5MINP PRN SL 06/12/24 22:00 Morphine Sulfate 2 mg Q30M PRN IV 06/12/24 22:00 Ceftriaxone Sodium 50 ml @ 100 mls/hr Q24H IV 06/13/24 22:00 Laboratory Results Laboratory Tests 06/13/24 04:57 Chemistry Test 06/13/24 04:57 Albumin 4.1 g/dL (3.2-4.8) Calcium Level 10.1 mg/dL (8.7-10.4) Magnesium Level 2.6 mg/dL (1.6-2.6) Phosphorus Level 3.9 mg/dL (2.4-5.1) Total Protein 6.3 g/dL (5.7-8.2) Coagulation Test 06/13/24 10:09 Prothrombin Time 10.7 sec (9.3-11.8) Prothrombin Time INR 1.01 (0.9-1.15) Activated Partial Thromboplast Time 26.5 SEC (24.5-34.5) D-Dimer, Quantitative 2.27 mg/L FEU (0.0-0.49) H Cardiac Markers Test 06/13/24 04:57 B-Type Natriuretic Peptide 94.64 pg/mL (0-100) LFT Test 06/13/24 04:57 Alanine Aminotransferase (ALT) 21 U/L (7-40) Alkaline Phosphatase 137 U/L (46-116) H Aspartate Amino Transferase (AST) 21 U/L (13-40) Total Bilirubin 0.8 mg/dL (0.2-1.0) HgA1c, TSH Test 06/13/24 04:57 Hemoglobin A1c 12.3 % A1C (<5.7) H Thyroid Stimulating Hormone (TSH) 2.24 uIU/mL (0.55-4.78) Urinalysis Test 06/13/24 13:55 Urine Color Light-yellow (Yellow) Urine Clarity Turbid (Clear) H Urine pH 5.5 (5.0-9.0) Urine Specific [place] 1.024 (1.001-1.035) Urine Protein Trace (Negative) H Urine Ketones Trace (Negative) Urine Blood Negative /uL (Negative) Urine Nitrite Negative (Negative) Urine Bilirubin Negative (Negative) Urine Urobilinogen Normal mg/dL (Negative) Urine Leukocyte Esterase 3+ /uL (Negative) Urine RBC 13 /hpf (0 - 4) Urine Microscopic WBC 20 /HPF (0-5) H Urine Squamous Epithelial Cells Mod /hpf (<5) Urine Bacteria Few /hpf (None Seen) H Urine Mucus Few (None Seen) Urine Creatinine 81.47 mg/dL (30.0-125.0) Urine Protein/Creatinine Ratio 0.51 Urine Glucose 4+ mg/dL (Normal) H Urine Total Protein 41.9 mg/dL (1-14) H Labs and/or images reviewed: Labs reviewed by me, Image(s) reviewed by me Assessment/Plan Assessment/Plan Impression: -syncope with collapse -left shoulder dislocation with humerus fracture -obesity -diabetes mellitus -dyslipidemia -primary hypertension -acute kidney injury, probably prerenal -complicated cystitis -rule out sepsis Plan: -IV hydration -IV Rocephin -orthopedic surgery consultation -cardiology consultation -hold antihypertensives -regular insulin sliding scale -orthostatic blood pressures -pain management -repeat labs in a.m. Total time spent with patient discussing and formulating plan of care: 35 minutes. This medical document was created using an electronic medical record system with [employer] dictation system. Although this document has been carefully reviewed, there may still be some phonetic and typographical errors. These areas are purely typographical due to imperfections of the software programs, and do not reflect any compromise in the patient's medical care. Plan discussed with: Patient, Other (RN) My Orders Orders - SILVESTRE YAO NP Procedure Category Date Status Time Basic Metabolic Panel LAB 06/14/24 Verified 04:00 Complete Blood Count LAB 06/14/24 Verified 04:00 Date of Service: Jun 13, 2024 Billing Provider: SILVESTRE YAO NP Common Visit Codes: [id number] INP/OBS CARE(HIGH) SILVESTRE YAO NP Jun 13, 2024 16:41
[2024-06-13] MEDS ORDERED: MORPHINE SULFATE INJ 2 MG/ml SYRG IV PRN (16:45)
[2024-06-13 16:51] VITALS: RESP 18; O2SAT 98
--- NOTE | 2024-06-13 17:25 | DVHSR ---
APPROVED REPORT EXAM: LIMITED Two-dimensional and M-mode echocardiogram with Doppler and color Doppler. Blood Pressure: 128/54 mmHg INDICATION Syncope RISK FACTORS Height: 66, Weight: 260 DIMENSIONS LVDd4.5 (3.8-5.7cm)LA (2D) (1.9-4.0cm)Aortic Root3.9 (2.0-3.7cm) LVDs3.1 (2.5-4.0cm)LA (MM) (1.9-4.0cm)Aortic Cusp Exc1.8 (1.5-2.0cm) EF (%) 60.0 (55-70%)Rt. Atrium (1.9-4.0cm)Asc. Aorta3.2 cm Mitral Valve MitralMitral Stenosis E/A ratio0.02D MVAcm2 Aortic Valve Aortic ValveAortic Stenosis LVOT Diameter2.2 (1.8-2.4cm)Doppler AVAcm2 Tricuspid Valve TR Velocity1.70m/s [id number] Other Information Technically limited study due to patient has a fractured left shoulder. Patients arm was in a sling. Patient was laying flat on her back. Conclusion lvef 55% by visual estimate rv not seen atria not seen aortic sclerosis and calcification valves not well assessed
[2024-06-13 20:00] VITALS: PULSE 50; PULSE 51; RESP 18; O2SAT 98
[2024-06-13] MEDS: cefTRIAXone 1GM/50ML D5W 50 ML IV SCH (20:16)
[2024-06-13 21:00] VITALS: BP_SYST 106; BP_SYST 99; BP_DIAS 34; BP_DIAS 35; PULSE 50; RESP 18; TEMP 97.9; O2SAT 98
[2024-06-13 22:31] LABS: Creatinine, Urine 80.95 mg/dL (30.0-125.0)
[2024-06-14] VITALS (7 sets, daily range): BP systolic 104–147; BP diastolic 50–59; PULSE 61–77; RESP 16–18; TEMP 97.3–98.9; O2SAT 93–99
[2024-06-14 07:27] LABS: Basophils # (auto) 0 10 ^3/uL (0-0.2); Basophils % (auto) 0.4 % (0.0-2.0); Eosinophils # (auto) 0.1 10 ^3/uL (0-0.8); Eosinophils % (auto) 0.6 % (0.0-7.0); Hematocrit 39.7 % (36.0-46.0); Hemoglobin 12.8 g/dL (12.2-16.2); Lymphocytes % (auto) 8.9 % (10.0-50.0); Mean Corpuscular Hemoglobin 29.7 pg (28.0-32.0); Mean Corpuscular Hgb Conc. 32.2 g/dL (32.0-36.0); Mean Corpuscular Volume 92.2 fL (80.0-100.0); Monocytes # (auto) 0.5 10 ^3/uL (0-1.3); Monocytes % (auto) 4.6 % (0.0-12.0); Neutrophils # (auto) 9.9 10 ^3/uL (1.6-8.6); Neutrophils % (auto) 85.5 % (37.0-80.0); Platelet Count (auto) 185 10^3/uL (140-450); Red Blood Cells 4.31 10^6/uL (4.0-5.20); Red Cell Distribution Width 14.3 % (11.8-14.3); White Blood Cell 11.6 10^3/uL (4.4-10.8)
[2024-06-14 07:33] LABS: Anion Gap 12 (5-15); Carbon Dioxide 24 mmol/L (20-31); Potassium 3.7 mmol/L (3.5-5.1); Sodium 143 mmol/L (136-145)
[2024-06-14 07:34] LABS: Calcium 9.6 mg/dL (8.7-10.4)
[2024-06-14 07:39] LABS: BUN/Creatinine Ratio 19.1 (10.0-20.0)
[2024-06-14 07:46] LABS: Blood Urea Nitrogen 30 mg/dL (9-23); Chloride 107 mmol/L (98-107); Glucose 130 mg/dL (74-106)
[2024-06-14] MEDS: ENOXAPARIN SOD 40 MG/0.4 ML SYRINGE SC SCH (08:58)
[2024-06-14] MEDS ORDERED: POTA-215 PO (09:06)
[2024-06-14] MEDS ORDERED: FURO1TAB32 PO (09:06)
[2024-06-14] MEDS ORDERED: EMPA1TAB3 PO (09:06)
[2024-06-14] MEDS ORDERED: ATEN-60 PO (09:06)
--- NOTE | 2024-06-14 10:33 | DVHPN2 ---
Progress Note Date Seen: Jun 14, 2024 Medical Necessity Reason Pt with a Central, PICC or Fol: No Subjective Patient reports: No new complaints Other Systems: Patient seen and examined by myself today in follow-up Objective vital signs Vital Sign Date Time Temp Pulse Resp B/P (MAP) Pulse Ox O2 Delivery O2 Flow Rate FiO2 06/14/24 09:00 97.4 61 17 128/50 (76) 96 97.4 06/13/24 20:00 Nasal Cannula* 2 28 Total Intake and Output 06/13/24 06/13/24 06/14/24 15:00 23:00 07:00 Intake Total 170 ml 50 ml Output Total 100 ml Balance 170 ml -50 ml medications Current Medications Medications Dose Ordered Sig/Michelle Route Start Time Stop Time Status Last Admin Dose Admin Atorvastatin Calcium 20 mg HS PO 06/12/24 22:00 06/13/24 20:18 Hydralazine HCl 10 mg Q6HP PRN IV 06/12/24 21:00 Diagnostic Test (Pha) 1 strip IQ4HR 06/13/24 00:00 06/14/24 08:00 Insulin Human Regular IQ4HR SC 06/13/24 00:00 06/14/24 08:00 Dextrose 50 ml UD PRN IV 06/12/24 21:00 Sodium Chloride 1,000 ml @ 60 mls/hr [id number] IV 06/12/24 21:00 06/13/24 13:58 Acetaminophen/ Hydrocodone Bitart 1 tab Q4HP PRN PO 06/12/24 21:00 06/13/24 21:28 Ondansetron HCl 4 mg Q4HP PRN IV 06/12/24 21:00 Docusate Sodium 100 mg BIDPRN PRN PO 06/12/24 21:00 Acetaminophen 650 mg Q6HP PRN PO 06/12/24 21:00 Nitroglycerin 0.4 mg Q5MINP PRN SL 06/12/24 22:00 Morphine Sulfate 2 mg Q30M PRN IV 06/12/24 22:00 Ceftriaxone Sodium 50 ml @ 100 mls/hr Q24H IV 06/13/24 22:00 06/13/24 20:16 Morphine Sulfate 1 mg Q3HP PRN IV 06/13/24 16:45 Enoxaparin Sodium 40 mg DAILY SC 06/14/24 10:00 06/14/24 08:58 Examination: LUNGS:Normal, CVS:Normal, MSK:Normal laboratory and microbiology Laboratory Tests 06/14/24 06:37 Test 06/14/24 06:37 Range/Units Serum Glucose 130 H 74-106 mg/dL Microbiology Date/Time Source Procedure Growth Status 06/12/24 21:17 Blood Blood Culture - Preliminary NO GROWTH AFTER 24 HOURS OF INCUBATION. Resulted Problem List/Assessment/Plan Problem List/Assessment/Plan Acute kidney injury superimposed Chronic Kidney Disease secondary hemodynamic mediated, FeNa < 1% Diabetes mellitus type 2 Hypotension Syncope Dislocated left shoulder Fracture left proximal humerus metaphysis Hypercalcemia likely due to dehydration Recommendations Kidney function is improving No urine output charted Strict I&Os kidney ultrasound reported bilateral echogenic kidney IV fluid hydration Insulin sliding scale Orthopedic consult We will continue to follow Plan discussed with: Patient ISAEL JAMIL MD Jun 14, 2024 10:33
--- NOTE | 2024-06-14 14:06 | DVHPN2 ---
Reviewed: Care Plan, H&P, Labs, Medications Changes from previous H/P or p: No Changes General: Per HPI Eyes: No Pain, No Vision change, No Conjunctivae inflammation, No Eyelid inflammation, No Other, No Redness ENT: No Ear pain, No Ear discharge, No Nose pain, No Nose discharge, No Nose congestion, No Mouth pain, No Mouth swelling, No Throat pain, No Throat swelling, No Other Cardiovascular: No Chest Pain, No Palpitations, No Orthopnea, No Paroxysmal Noc. Dyspnea, No Edema, No Lt Headedness; Other (Syncope) Respiratory: No Cough, No Dry, No Shortness of breath, No SOB with excertion, No Wheezing, No Hemoptysis, No Pleuritic Pain, No Sputum, No Other Gastrointestinal: No Nausea, No Vomiting, No Abdominal Pain, No Diarrhea, No Constipation, No Melena, No Hematochezia, No Other Genitourinary: No Dysuria, No Frequency, No Incontinence, No Hematuria, No Retention, No Other Musculoskeletal: other (Left arm pain) Skin: No Rash, No Lesions, No Jaundice, No Bruising, No Other Objective Vitals Vital Signs Date Time Temp Pulse Resp B/P (MAP) Pulse Ox O2 Delivery O2 Flow Rate FiO2 06/14/24 13:00 97.3 67 16 138/58 (84) 96 97.3 06/14/24 08:00 Room Air* 0 21 Intake/Output Intake and Output 06/14/24 07:00 Intake Total 220 ml Output Total 100 ml Balance 120 ml Intake Oral 170 ml IV Total 50 ml Output Urine Total 100 ml General Appearance: Alert, Oriented X3, Cooperative, mild distress HEENT: Atraumatic, PERRLA Lungs: Clear to auscultation, Normal air movement Cardiovascular: Normal S1, Normal S2, Other (Sinus bradycardia) Musculoskeletal: Normal sensory function, Normal motor function Extremities: Other (Right shoulder deformity) Neuro: Normal gait, Normal speech Psych/Mental Status: Mental status NL, Mood NL Medications Current Medications Medications Dose Ordered Sig/Michelle Route Start Time Stop Time Status Last Admin Dose Admin Atorvastatin Calcium 20 mg HS PO 06/12/24 22:00 06/13/24 20:18 20 MG Hydralazine HCl 10 mg Q6HP PRN IV 06/12/24 21:00 Diagnostic Test (Pha) 1 strip IQ4HR 06/13/24 00:00 06/14/24 11:49 1 STRIP Insulin Human Regular IQ4HR SC 06/13/24 00:00 06/14/24 11:50 2 UNITS Dextrose 50 ml UD PRN IV 06/12/24 21:00 Sodium Chloride 1,000 ml @ 60 mls/hr [id number] IV 06/12/24 21:00 06/13/24 13:58 60 MLS/HR Acetaminophen/ Hydrocodone Bitart 1 tab Q4HP PRN PO 06/12/24 21:00 06/13/24 21:28 1 TAB Ondansetron HCl 4 mg Q4HP PRN IV 06/12/24 21:00 Docusate Sodium 100 mg BIDPRN PRN PO 06/12/24 21:00 Acetaminophen 650 mg Q6HP PRN PO 06/12/24 21:00 Nitroglycerin 0.4 mg Q5MINP PRN SL 06/12/24 22:00 Morphine Sulfate 2 mg Q30M PRN IV 06/12/24 22:00 Ceftriaxone Sodium 50 ml @ 100 mls/hr Q24H IV 06/13/24 22:00 06/13/24 20:16 100 MLS/HR Morphine Sulfate 1 mg Q3HP PRN IV 06/13/24 16:45 Enoxaparin Sodium 40 mg DAILY SC 06/14/24 10:00 06/14/24 08:58 40 MG Laboratory Results Laboratory Tests 06/14/24 06:37 Chemistry Test 06/14/24 06:37 Calcium Level 9.6 mg/dL (8.7-10.4) Urinalysis Test 06/13/24 13:55 Urine Color Light-yellow (Yellow) Urine Clarity Turbid (Clear) H Urine pH 5.5 (5.0-9.0) Urine Specific [place] 1.024 (1.001-1.035) Urine Protein Trace (Negative) H Urine Ketones Trace (Negative) Urine Blood Negative /uL (Negative) Urine Nitrite Negative (Negative) Urine Bilirubin Negative (Negative) Urine Urobilinogen Normal mg/dL (Negative) Urine Leukocyte Esterase 3+ /uL (Negative) Urine RBC 13 /hpf (0 - 4) Urine Microscopic WBC 20 /HPF (0-5) H Urine Squamous Epithelial Cells Mod /hpf (<5) Urine Bacteria Few /hpf (None Seen) H Urine Mucus Few (None Seen) Urine Creatinine 81.47 mg/dL (30.0-125.0) Urine Protein/Creatinine Ratio 0.51 Urine Sodium 24 mmol/L (40-220) L Urine Glucose 4+ mg/dL (Normal) H Urine Total Protein 41.9 mg/dL (1-14) H Microbiology Microbiology Date/Time Source Procedure Growth Status 06/12/24 21:17 Blood Blood Culture - Preliminary NO GROWTH AFTER 24 HOURS OF INCUBATION. Resulted Assessment/Plan Assessment/Plan Impression: -syncope with collapse -left shoulder dislocation with humerus fracture -obesity -diabetes mellitus -dyslipidemia -primary hypertension -acute kidney injury, probably prerenal -complicated cystitis -rule out sepsis Plan: -IV hydration -IV Rocephin -orthopedic surgery consultation -cardiology consultation -hold antihypertensives -regular insulin sliding scale -orthostatic blood pressures -pain management -repeat labs in a.m. 06/14/2024: pending ortho evaluation patient and daughter at bedside is awaiting for full evaluation by ortho Plan discussed with: Patient, Daughter Date of Service: Jun 14, 2024 Billing Provider: NIRAV PIPER DO Common Visit Codes: [id number] INP/OBS CARE(HIGH) NIRAV PIPER DO Jun 14, 2024 14:06
[2024-06-15] VITALS (8 sets, daily range): BP systolic 112–157; BP diastolic 47–69; PULSE 61–82; RESP 16–19; TEMP 97.7–98.5; O2SAT 94–97
--- NOTE | 2024-06-15 11:15 | DVHPN2 ---
Progress Note Date Seen: Jun 15, 2024 Medical Necessity Reason Pt with a Central, PICC or Fol: No Subjective Patient reports: No new complaints Other Systems: Patient seen and examined by myself today Objective vital signs Vital Sign Date Time Temp Pulse Resp B/P (MAP) Pulse Ox O2 Delivery O2 Flow Rate FiO2 06/15/24 08:32 98.3 69 16 136/47 (76) 97 98.3 06/15/24 08:00 Room Air* 0 21 Total Intake and Output 06/14/24 06/14/24 06/15/24 15:00 23:00 07:00 Intake Total 760 ml 400 ml Output Total 600 ml Balance 160 ml 400 ml medications Current Medications Medications Dose Ordered Sig/Michelle Route Start Time Stop Time Status Last Admin Dose Admin Atorvastatin Calcium 20 mg HS PO 06/12/24 22:00 06/14/24 20:25 20 MG Hydralazine HCl 10 mg Q6HP PRN IV 06/12/24 21:00 Diagnostic Test (Pha) 1 strip IQ4HR 06/13/24 00:00 06/15/24 09:17 1 STRIP Insulin Human Regular IQ4HR SC 06/13/24 00:00 06/15/24 09:23 3 UNITS Dextrose 50 ml UD PRN IV 06/12/24 21:00 Sodium Chloride 1,000 ml @ 60 mls/hr [id number] IV 06/12/24 21:00 06/14/24 23:35 60 MLS/HR Acetaminophen/ Hydrocodone Bitart 1 tab Q4HP PRN PO 06/12/24 21:00 06/15/24 09:17 1 TAB Ondansetron HCl 4 mg Q4HP PRN IV 06/12/24 21:00 Docusate Sodium 100 mg BIDPRN PRN PO 06/12/24 21:00 Acetaminophen 650 mg Q6HP PRN PO 06/12/24 21:00 Nitroglycerin 0.4 mg Q5MINP PRN SL 06/12/24 22:00 Morphine Sulfate 2 mg Q30M PRN IV 06/12/24 22:00 Ceftriaxone Sodium 50 ml @ 100 mls/hr Q24H IV 06/13/24 22:00 06/14/24 20:25 100 MLS/HR Morphine Sulfate 1 mg Q3HP PRN IV 06/13/24 16:45 Enoxaparin Sodium 40 mg DAILY SC 06/14/24 10:00 06/15/24 09:16 40 MG Examination: LUNGS:Normal (In follow-up), CVS:Normal, MSK:Normal laboratory and microbiology Laboratory Tests 06/14/24 06:37 Test 06/14/24 06:37 Range/Units Serum Glucose 130 H 74-106 mg/dL Microbiology Date/Time Source Procedure Growth Status 06/12/24 21:17 Blood Blood Culture - Preliminary NO GROWTH AFTER 48 HOURS OF INCUBATION. Resulted Problem List/Assessment/Plan Problem List/Assessment/Plan Acute kidney injury superimposed Chronic Kidney Disease secondary hemodynamic mediated, FeNa < 1% Diabetes mellitus type 2 Hypotension Syncope Dislocated left shoulder Fracture left proximal humerus metaphysis Hypercalcemia likely due to dehydration Recommendations Kidney function continues to improve No urine output charted Strict I&Os kidney ultrasound reported bilateral echogenic kidney IV fluid hydration Insulin sliding scale Orthopedic consult I will sign off this case please refer to my office two weeks after discharge for Chronic Kidney Disease follow-up, thank you for the consult Plan discussed with: Patient ISAEL JAMIL MD Jun 15, 2024 11:15
--- NOTE | 2024-06-15 12:26 | DVHPN2 ---
Reviewed: Care Plan, H&P, Labs, Medications Changes from previous H/P or p: No Changes General: Per HPI Eyes: No Pain, No Vision change, No Conjunctivae inflammation, No Eyelid inflammation, No Other, No Redness ENT: No Ear pain, No Ear discharge, No Nose pain, No Nose discharge, No Nose congestion, No Mouth pain, No Mouth swelling, No Throat pain, No Throat swelling, No Other Cardiovascular: No Chest Pain, No Palpitations, No Orthopnea, No Paroxysmal Noc. Dyspnea, No Edema, No Lt Headedness; Other (Syncope) Respiratory: No Cough, No Dry, No Shortness of breath, No SOB with excertion, No Wheezing, No Hemoptysis, No Pleuritic Pain, No Sputum, No Other Gastrointestinal: No Nausea, No Vomiting, No Abdominal Pain, No Diarrhea, No Constipation, No Melena, No Hematochezia, No Other Genitourinary: No Dysuria, No Frequency, No Incontinence, No Hematuria, No Retention, No Other Musculoskeletal: other (Left arm pain) Skin: No Rash, No Lesions, No Jaundice, No Bruising, No Other Objective Vitals Vital Signs Date Time Temp Pulse Resp B/P (MAP) Pulse Ox O2 Delivery O2 Flow Rate FiO2 06/15/24 08:32 98.3 69 16 136/47 (76) 97 98.3 06/15/24 08:00 Room Air* 0 21 Intake/Output Intake and Output 06/15/24 07:00 Intake Total 1160 ml Output Total 600 ml Balance 560 ml Intake Oral 1110 ml IV Total 50 ml Output Urine Total 600 ml # Voids 2 General Appearance: Alert, Oriented X3, Cooperative, mild distress HEENT: Atraumatic, PERRLA Lungs: Clear to auscultation, Normal air movement Cardiovascular: Normal S1, Normal S2, Other (Sinus bradycardia) Musculoskeletal: Normal sensory function, Normal motor function Extremities: Other (Right shoulder deformity) Neuro: Normal gait, Normal speech Psych/Mental Status: Mental status NL, Mood NL Medications Current Medications Medications Dose Ordered Sig/Michelle Route Start Time Stop Time Status Last Admin Dose Admin Atorvastatin Calcium 20 mg HS PO 06/12/24 22:00 06/14/24 20:25 20 MG Hydralazine HCl 10 mg Q6HP PRN IV 06/12/24 21:00 Diagnostic Test (Pha) 1 strip IQ4HR 06/13/24 00:00 06/15/24 09:17 1 STRIP Insulin Human Regular IQ4HR SC 06/13/24 00:00 06/15/24 09:23 3 UNITS Dextrose 50 ml UD PRN IV 06/12/24 21:00 Sodium Chloride 1,000 ml @ 60 mls/hr [id number] IV 06/12/24 21:00 06/14/24 23:35 60 MLS/HR Acetaminophen/ Hydrocodone Bitart 1 tab Q4HP PRN PO 06/12/24 21:00 06/15/24 09:17 1 TAB Ondansetron HCl 4 mg Q4HP PRN IV 06/12/24 21:00 Docusate Sodium 100 mg BIDPRN PRN PO 06/12/24 21:00 Acetaminophen 650 mg Q6HP PRN PO 06/12/24 21:00 Nitroglycerin 0.4 mg Q5MINP PRN SL 06/12/24 22:00 Morphine Sulfate 2 mg Q30M PRN IV 06/12/24 22:00 Ceftriaxone Sodium 50 ml @ 100 mls/hr Q24H IV 06/13/24 22:00 06/14/24 20:25 100 MLS/HR Morphine Sulfate 1 mg Q3HP PRN IV 06/13/24 16:45 Enoxaparin Sodium 40 mg DAILY SC 06/14/24 10:00 06/15/24 09:16 40 MG Laboratory Results Laboratory Tests 06/14/24 06:37 Urinalysis Test 06/13/24 13:55 Urine Color Light-yellow (Yellow) Urine Clarity Turbid (Clear) H Urine pH 5.5 (5.0-9.0) Urine Specific [place] 1.024 (1.001-1.035) Urine Protein Trace (Negative) H Urine Ketones Trace (Negative) Urine Blood Negative /uL (Negative) Urine Nitrite Negative (Negative) Urine Bilirubin Negative (Negative) Urine Urobilinogen Normal mg/dL (Negative) Urine Leukocyte Esterase 3+ /uL (Negative) Urine RBC 13 /hpf (0 - 4) Urine Microscopic WBC 20 /HPF (0-5) H Urine Squamous Epithelial Cells Mod /hpf (<5) Urine Bacteria Few /hpf (None Seen) H Urine Mucus Few (None Seen) Urine Creatinine 81.47 mg/dL (30.0-125.0) Urine Protein/Creatinine Ratio 0.51 Urine Sodium 24 mmol/L (40-220) L Urine Glucose 4+ mg/dL (Normal) H Urine Total Protein 41.9 mg/dL (1-14) H Microbiology Microbiology Date/Time Source Procedure Growth Status 06/12/24 21:17 Blood Blood Culture - Preliminary NO GROWTH AFTER 48 HOURS OF INCUBATION. Resulted Assessment/Plan Assessment/Plan Impression: -syncope with collapse -left shoulder dislocation with humerus fracture -obesity -diabetes mellitus -dyslipidemia -primary hypertension -acute kidney injury, probably prerenal -complicated cystitis -rule out sepsis Plan: -IV hydration -IV Rocephin -orthopedic surgery consultation -cardiology consultation -hold antihypertensives -regular insulin sliding scale -orthostatic blood pressures -pain management -repeat labs in a.m. 06/14/2024: pending ortho evaluation patient and daughter at bedside is awaiting for full evaluation by ortho 06/15/2024 pt is awaiting for ortho's full evaluation Plan discussed with: Patient Date of Service: Jun 15, 2024 Billing Provider: NIRAV PIPER DO Common Visit Codes: [id number] INP/OBS CARE(HIGH) NIRAV PIPER DO Jun 15, 2024 12:26
[2024-06-16 00:58] VITALS: BP 151/59; PULSE 69; RESP 19; TEMP 98.2; O2SAT 96
[2024-06-16 05:00] VITALS: BP 147/67; PULSE 71; RESP 19; TEMP 98.1; O2SAT 95
[2024-06-16 08:30] VITALS: PULSE 75
[2024-06-16 08:40] VITALS: BP 152/68; PULSE 72; RESP 18; TEMP 98.1; O2SAT 95
[2024-06-16] MEDS ORDERED: DEXTROSE (50%) 50ML SYRG IV PRN (11:00)
--- NOTE | 2024-06-16 11:08 | DVHPN2 ---
Subjective Patient continues to report having left shoulder pain. Reviewed: Care Plan, H&P, Labs, Medications Changes from previous H/P or p: No Changes General: Per HPI Eyes: No Pain, No Vision change, No Conjunctivae inflammation, No Eyelid inflammation, No Other, No Redness ENT: No Ear pain, No Ear discharge, No Nose pain, No Nose discharge, No Nose congestion, No Mouth pain, No Mouth swelling, No Throat pain, No Throat swelling, No Other Cardiovascular: No Chest Pain, No Palpitations, No Orthopnea, No Paroxysmal Noc. Dyspnea, No Edema, No Lt Headedness; Other (Syncope) Respiratory: No Cough, No Dry, No Shortness of breath, No SOB with excertion, No Wheezing, No Hemoptysis, No Pleuritic Pain, No Sputum, No Other Gastrointestinal: No Nausea, No Vomiting, No Abdominal Pain, No Diarrhea, No Constipation, No Melena, No Hematochezia, No Other Genitourinary: No Dysuria, No Frequency, No Incontinence, No Hematuria, No Retention, No Other Musculoskeletal: other (Left arm pain) Skin: No Rash, No Lesions, No Jaundice, No Bruising, No Other Objective Vitals Vital Signs Date Time Temp Pulse Resp B/P (MAP) Pulse Ox O2 Delivery O2 Flow Rate FiO2 06/16/24 08:40 98.1 72 18 152/68 (96) 95 98.1 06/15/24 19:50 Room Air* 0 21 Intake/Output Intake and Output 06/16/24 07:00 Intake Total 1075 ml Output Total 0 ml Balance 1075 ml Intake Oral 1025 ml IV Total 50 ml Stool Total 0 ml # Voids 5 General Appearance: Alert, Oriented X3, Cooperative, mild distress HEENT: Atraumatic, PERRLA Lungs: Clear to auscultation, Normal air movement Cardiovascular: Normal S1, Normal S2, Other (Sinus bradycardia) Musculoskeletal: Normal sensory function, Normal motor function Extremities: Other (Right shoulder deformity) Neuro: Normal gait, Normal speech Skin: Dry, Intact Psych/Mental Status: Mental status NL, Mood NL Medications Current Medications Medications Dose Ordered Sig/Michelle Route Start Time Stop Time Status Last Admin Dose Admin Atorvastatin Calcium 20 mg HS PO 06/12/24 22:00 06/15/24 19:55 20 MG Hydralazine HCl 10 mg Q6HP PRN IV 06/12/24 21:00 Diagnostic Test (Pha) 1 strip IQ4HR 06/13/24 00:00 06/16/24 08:00 1 STRIP Dextrose 50 ml UD PRN IV 06/12/24 21:00 Acetaminophen/ Hydrocodone Bitart 1 tab Q4HP PRN PO 06/12/24 21:00 06/15/24 19:54 1 TAB Ondansetron HCl 4 mg Q4HP PRN IV 06/12/24 21:00 Docusate Sodium 100 mg BIDPRN PRN PO 06/12/24 21:00 Acetaminophen 650 mg Q6HP PRN PO 06/12/24 21:00 Nitroglycerin 0.4 mg Q5MINP PRN SL 06/12/24 22:00 Morphine Sulfate 2 mg Q30M PRN IV 06/12/24 22:00 Ceftriaxone Sodium 50 ml @ 100 mls/hr Q24H IV 06/13/24 22:00 06/15/24 19:54 100 MLS/HR Morphine Sulfate 1 mg Q3HP PRN IV 06/13/24 16:45 Enoxaparin Sodium 40 mg DAILY SC 06/14/24 10:00 06/16/24 08:55 40 MG Laboratory Results Laboratory Tests 06/14/24 06:37 Urinalysis Test 06/13/24 13:55 Urine Color Light-yellow (Yellow) Urine Clarity Turbid (Clear) H Urine pH 5.5 (5.0-9.0) Urine Specific [place] 1.024 (1.001-1.035) Urine Protein Trace (Negative) H Urine Ketones Trace (Negative) Urine Blood Negative /uL (Negative) Urine Nitrite Negative (Negative) Urine Bilirubin Negative (Negative) Urine Urobilinogen Normal mg/dL (Negative) Urine Leukocyte Esterase 3+ /uL (Negative) Urine RBC 13 /hpf (0 - 4) Urine Microscopic WBC 20 /HPF (0-5) H Urine Squamous Epithelial Cells Mod /hpf (<5) Urine Bacteria Few /hpf (None Seen) H Urine Mucus Few (None Seen) Urine Creatinine 81.47 mg/dL (30.0-125.0) Urine Protein/Creatinine Ratio 0.51 Urine Sodium 24 mmol/L (40-220) L Urine Glucose 4+ mg/dL (Normal) H Urine Total Protein 41.9 mg/dL (1-14) H Microbiology Microbiology Date/Time Source Procedure Growth Status 2/20/25 21:17 Blood Blood Culture - Preliminary NO GROWTH AFTER 72 HOURS OF INCUBATION. Resulted Labs and/or images reviewed: Labs reviewed by me, Image(s) reviewed by me Assessment/Plan Assessment/Plan Impression: -syncope with collapse -left shoulder dislocation with humerus fracture -obesity -diabetes mellitus -dyslipidemia -primary hypertension -acute kidney injury, probably prerenal -complicated cystitis -rule out sepsis Plan: -orthopedic surgery consultation: pending -cardiology consultation -hold antihypertensives -regular insulin sliding scale -pain management -Further care per Ortho. Total time spent with patient discussing and formulating plan of care: 35 minutes. This medical document was created using an electronic medical record system with [employer] dictation system. Although this document has been carefully reviewed, there may still be some phonetic and typographical errors. These areas are purely typographical due to imperfections of the software programs, and do not reflect any compromise in the patient's medical care. Plan discussed with: Patient, Other (RN) My Orders Orders - SILVESTRE YAO NP Procedure Category Date Status Time Communication Order ORDERS 06/16/24 Transmitted 09:10 Glucose Blood PHA 06/16/24 Logged (Accu-Chek Comfort 11:30 Insulin R (Human) PHA 06/16/24 Logged (Insulin R) 11:30 Dextrose 50% Syringe PHA 06/16/24 Logged 11:00 Date of Service: Jun 16, 2024 Billing Provider: SILVESTRE YAO NP Common Visit Codes: [id number] INP/OBS CARE(HIGH) SILVESTRE YAO NP Jun 16, 2024 11:08
[2024-06-16] MEDS: ACCU-CHEK COMFORT CURVE STRIP VI SCH (11:30)
[2024-06-16] MEDS: InsuLIN REG 1unit/0.01ml Soln (100units/ml) SC SCH (11:30)
[2024-06-16 13:00] VITALS: BP 169/72; PULSE 80; RESP 18; TEMP 98.3; O2SAT 97
--- NOTE | 2024-06-16 13:12 | DVHINCON2 ---
Consult Note Consult Consult Note Consult note HPI Inserts or 130 patient is a 79-year-old female who was seen in emergency department few days ago after experiencing syncopal episode resulting in a left proximal humerus fracture with anterior dislocation. Reduction was performed in emergency room by ER physician postreduction images were completed. Patient was admitted under Internal Medicine team for further workup for syncope and unspecified leukocytosis. Orthopedic surgery was consulted for further evaluation and management of the left shoulder fractures dislocation. Current symptom patient reports pain 7 to 8/10 with left shoulder range of motion Denies numbness tingling, weakness or sensory Loss left upper extremity no additional concerns reported by patient at this time Physical exam General: No acute distress Neurovascular: No sensory deficit or motor weakness in left upper extremity, shoulder range of motion considerably reduced secondary to pain and history of fracture Radial pulse intact, cap refill less than 2nd No evidence of compartment syndrome soft compartments left upper extremity noted MSK left shoulder Limited range of motion left No open wound or signs of infection noted X-ray reviewed noted proximal humerus metaphysis fracture, portable views were obtained that are not very high quality Assessment And plan Left proximal humerus fracture with anterior shoulder dislocation, status post ER reduction of this dislocation Plan: CT left shoulder ordered Patient to be placed in a Nick brace today for immobilization by Orthopedic team Pain control per medicine team Patient to follow up with orthopedic clinic in 1 week as long as CT does not show any dislocation for further evaluation for operative versus nonoperative management At follow-up we will obtain x-ray for comparison Discussed with patient bedside nurse Once CT is obtained and reviewed by orthopedic and no dislocation is noted , and once Nick brace is fitted, patient can be cleared to discharge by medicine team for outpatient ortho followup in 1 week, further disposition for other than orthopedics is deferred to medicine team ADDENDUM 06/16/2024 1916 : CT REVIEWED BY ORTHOPEDICS, DISCUSSED REVERSE SHOULDER WITH PATIENT. PATIENT WOULD LIKE TO MANAGE THIS NON OP IF possible, HOWEVER PATIENT WILL FOLLOW-UP WITH ME IN 1 WEEK OUTPATIENT TO REDISCUSS SURGICAL INTERVENTION vs non op. TODAY TREATED WITH SLING AND FOLLOW UP IN 1 WEEK. DISCUSSED FALL RISK, ER RETURN PRECAUTIONS. ALL QUESTIONS ANSWERED PATIENT AGREED WITH THE ABOVE PLAN PATIENT CAN BE DISCHARGED FROM ORTHOPEDIC STANDPOINT. CPT code [id number] x-ray shoulder review ICD 10 code S42 point 2 1 x-ray Plan discussed with: Patient, Other (bedside nurse) RACHELLE WILLIS PAC Jun 16, 2024 13:12
--- NOTE | 2024-06-16 13:45 | DVH ---
CLINICAL INDICATION: 79 years old, Female; SURGICAL PLANNING. TECHNIQUE: Noncontrast CT of the left shoulder was performed. Sagittal and coronal reformatted images are provided. COMPARISON: Radiographs of the left shoulder performed on 06/12/2024 CT Dose: CTDI volume is 33.48 mGy. Dose-length product is 805.71 mGy*cm FINDINGS: Comminuted left humeral head fracture involving the surgical neck, anatomical neck, greater and lesse r tuberosities. The humeral head remains aligned with the glenoid. The acromioclavicular joint space is preserved. Soft tissue swelling and joint effusion. Chronic appearing sternal fracture. Visualized left lung frye are clear. IMPRESSION: 1. Comminuted 4 part fracture of the left humerus. No dislocation. HS:Y All CT scans at this medical facility are performed using dose modulation techniques as appropriate t o a performed exam including the following: Automated exposure control was utilized; adjustment of th e MA and/or KV according to patient size; and use of iterative reconstruction technique.
[2024-06-16] MEDS ORDERED: TRAM-626 PO (15:11)
[2024-06-16] MEDS ORDERED: CIPR500T4 PO (15:11)
--- NOTE | 2024-06-16 15:15 | DVHDS2 ---
Discharge Summary Date of Admission Jun 12, 2024 at 21:58 Date of Discharge: Jun 16, 2024 Admitting Diagnosis Syncope with collapse Labs/Diagnostic Data: Laboratory Results Test 06/16/24 08:47 06/14/24 06:37 06/13/24 13:55 06/13/24 10:50 POC Glucose 230 mg/dl (70-106) White Blood Count 11.6 10^3/uL (4.4-10.8) Red Blood Count 4.31 10^6/uL (4.0-5.20) Hemoglobin 12.8 g/dL (12.2-16.2) Hematocrit 39.7 % (36.0-46.0) Mean Corpuscular Volume 92.2 fL (80.0-100.0) Mean Corpuscular Hemoglobin 29.7 pg (28.0-32.0) Mean Corpuscular Hemoglobin Concent 32.2 g/dL (32.0-36.0) Red Cell Distribution Width 14.3 % (11.8-14.3) Platelet Count 185 10^3/uL (140-450) Mean Platelet Volume 9.4 fL (6.9-10.8) Neutrophils (%) (Auto) 85.5 % (37.0-80.0) Lymphocytes (%) (Auto) 8.9 % (10.0-50.0) Monocytes (%) (Auto) 4.6 % (0.0-12.0) Eosinophils (%) (Auto) 0.6 % (0.0-7.0) Basophils (%) (Auto) 0.4 % (0.0-2.0) Neutrophils # (Auto) 9.9 10 ^3/uL (1.6-8.6) Lymphocytes # (Auto) 1.0 10 ^3/uL (0.4-5.4) Monocytes # (Auto) 0.5 10 ^3/uL (0-1.3) Eosinophils # (Auto) 0.1 10 ^3/uL (0-0.8) Basophils # (Auto) 0 10 ^3/uL (0-0.2) Nucleated Red Blood Cells 0.0 % Sodium Level 143 mmol/L (136-145) Potassium Level 3.7 mmol/L (3.5-5.1) Chloride Level 107 mmol/L (98-107) Carbon Dioxide Level 24 mmol/L (20-31) Anion Gap 12 (5-15) Blood Urea Nitrogen 30 mg/dL (9-23) Creatinine 1.57 mg/dL (0.550-1.02) Glomerular Filtration Rate Calc 34 mL/min (>90) BUN/Creatinine Ratio 19.1 (10.0-20.0) Serum Glucose 130 mg/dL (74-106) Calcium Level 9.6 mg/dL (8.7-10.4) Urine Color Light-yellow (Yellow) Urine Clarity Turbid (Clear) Urine pH 5.5 (5.0-9.0) Urine Specific [place] 1.024 (1.001-1.035) Urine Protein Trace (Negative) Urine Ketones Trace (Negative) Urine Blood Negative /uL (Negative) Urine Nitrite Negative (Negative) Urine Bilirubin Negative (Negative) Urine Urobilinogen Normal mg/dL (Negative) Urine Leukocyte Esterase 3+ /uL (Negative) Urine RBC 13 /hpf (0 - 4) Urine Microscopic WBC 20 /HPF (0-5) Urine Squamous Epithelial Cells Mod /hpf (<5) Urine Bacteria Few /hpf (None Seen) Urine Mucus Few (None Seen) Urine Creatinine 81.47 mg/dL (30.0-125.0) Urine Protein/Creatinine Ratio 0.51 Urine Sodium 24 mmol/L (40-220) Urine Glucose 4+ mg/dL (Normal) Urine Total Protein 41.9 mg/dL (1-14) Parathyroid Hormone (Intact) 88.2 pg/mL (18.4-80.1) Test 06/13/24 10:09 06/13/24 04:57 06/12/24 19:08 Prothrombin Time 10.7 sec (9.3-11.8) Prothrombin Time INR 1.01 (0.9-1.15) Activated Partial Thromboplast Time 26.5 SEC (24.5-34.5) D-Dimer, Quantitative 2.27 mg/L FEU (0.0-0.49) Hemoglobin A1c 12.3 % A1C (<5.7) Phosphorus Level 3.9 mg/dL (2.4-5.1) Magnesium Level 2.6 mg/dL (1.6-2.6) Total Bilirubin 0.8 mg/dL (0.2-1.0) Aspartate Amino Transferase (AST) 21 U/L (13-40) Alanine Aminotransferase (ALT) 21 U/L (7-40) Alkaline Phosphatase 137 U/L (46-116) B-Type Natriuretic Peptide 94.64 pg/mL (0-100) Total Protein 6.3 g/dL (5.7-8.2) Albumin 4.1 g/dL (3.2-4.8) Vitamin B12 Level 609 pg/mL (211-911) Vitamin D 25-Hydroxy 32.6 ng/mL (30.0-100) Thyroid Stimulating Hormone (TSH) 2.24 uIU/mL (0.55-4.78) Troponin I High Sensitivity 15 ng/L (</=34) Other Laboratory Tests 06/14/24 06:37 Brief Hx & Hospital Course: History of Present Illness The patient is a 79-year-old female with past medical history of breast cancer, DM, hyperlipidemia, and hypertension who presented to [facility] ED for evaluation of syncopal episode. As reported, depression was sitting in the bathroom on the toilet and had a syncopal episode, so EMS were called by son-in-law. Patient was seen and evaluated in the ED, laboratory data shows WBC 18.4, platelets 259, sodium 137, potassium 4.1, BUN 44, creatinine 2.01, GFR 25, glucose 341, blood pressure 124/61, heart rate 64, temperature 97.8 F, O2 saturation 99% on room air. Left humerus x-ray revealing comminuted and displaced fracture of the proximal humeral metaphysis, anterior shoulder dislocation. Patient was started on IV antibiotic regimen Rocephin, please see medication orders section in the computer. On my assessment, patient denies chest pain, no headache, no dizziness, no diaphoresis, no shortness of breaths, no nausea, no vomiting, no fever, no chills. Patient was admitted for further evaluation and medical management. Course of hospitalization: Further discussion with the patient reveals that she was on the toilet and straining when she was found on the ground with left shoulder pain. Patient probably had vasovagal maneuver while having a BM. Patient had CT scan of the head which was negative for any acute pathology. Carotid Doppler study was negative. Orthostatic vital signs were performed. Patient was given adequate IV hydration. Orthopedic surgery consultation was obtained given patient's dislocation of left humerus as well as fracture. Repeat CT scan was performed which revealed appropriate placement of left shoulder, with communicated fracture. Patient has been cleared for discharge. Patient was noted to have elevated white blood cell count, UTI, for which patient was treated with Rocephin. Leukocytosis improved. Patient will be discharged home and follow up with Orthopedic surgery as well with the discharge Clinic in 1-2 weeks. She will be continued on antibiotic therapy with ciprofloxacin 500 mg p.o. twice a day x5 days. For pain management, patient will started on tramadol 50 mg p.o. q.8 hours as needed for [id number] pain. Patient will continue all home medications. All questions answered. Physical examination General: Alert and Oriented x3. No acute distress. Well-nourished. Obese Eyes: EOMI. Anicteric. HENT: Moist mucous membranes. Lungs: Clear to auscultation bilaterally. No accessory muscle use. Cardiovascular: Regular rate and rhythm. No murmur. No JVD. Abdomen: Soft, non-tender and non-distended. No palpable masses. Extremities: No edema. Non-tender. Skin: No rashes or lesions. Warm. Neurologic: No focal neurological deficits. CN II-XII grossly intact, but not individually tested. Psychiatric: Cooperative. Appropriate mood and affect. Total time spent with patient discussing and formulating plan of care: 35 minutes. This medical document was created using an electronic medical record system with [employer] dictation system. Although this document has been carefully reviewed, there may still be some phonetic and typographical errors. These areas are purely typographical due to imperfections of the software programs, and do not reflect any compromise in the patient's medical care. Consults/Reason for consult Orthopedic surgery: Left humerus fracture Condition at Discharge: Fair Final Diagnosis/Problems List Left humerus fracture Syncope with collapse Sepsis Secondary diagnosis -syncope with collapse -left shoulder dislocation with humerus fracture -obesity -diabetes mellitus -dyslipidemia -primary hypertension -acute kidney injury, probably prerenal -complicated cystitis Discharge Disposition: Home Discharge Instruct/Medications Diet: Regular Activity: No Restrictions, As Tolerated Follow Up/Referral: Orthopedic surgical clinic in 1-2 weeks PCP in 1-2 weeks Medications: Ciprofloxacin 500 mg p.o. b.i.d. x5 days Continue all home medications Tramadol 50 mg p.o. Q 8 hours as needed for [id number] pain -Colace 100 mg p.o. b.i.d. as needed for constipation 36 Discharge Statement: "Patient was advised to return to the ER or call 911 if any headaches, dizziness, shortness of breath, chest pain, abdominal pain, bleeding, fevers, or worsening of medical condition. Patient was counseled about treatment plan, medications, possible side effects, patientverbalized understanding. All questions were answered to the best of my ability. This discharge took greater then 30 minutes in planning, reviewing documentation, counseling the patient, and discussing with other team members." ASSESSMENT ASSESSMENT Assessment Left humerus fracture Syncope with collapse Sepsis Date of Service: Jun 16, 2024 Billing Provider: SILVESTRE YAO NP Common Visit Codes: 93623-JUT/OBS DISCH DAY >30min SILVESTRE YAO NP Jun 16, 2024 15:15
[2024-06-16 17:11] VITALS: BP 147/67; PULSE 81; RESP 18; TEMP 97.9; O2SAT 96
== END 2024-06-16 19:38 | disposition home or self-care (01) | DRG 872 ==
LOC: ER 12:26 → EDBD 12:26 → OVERFLOW 21:58 → TELE-WESTW 06-13 16:53
PROVIDERS: ADMIT Nurse Practitioner Acute Care; ATTEND Nurse Practitioner Acute Care
DX: A41.9 Sepsis, unspecified organism (principal); S42.222A 2-part displaced fracture of surgical neck of left humerus, initial encounter for closed fracture; N17.9 Acute kidney failure, unspecified; E66.9 Obesity, unspecified; X58.XXXA Exposure to other specified factors, initial encounter; E78.5 Hyperlipidemia, unspecified; E83.52 Hypercalcemia; E86.0 Dehydration; F32.A Depression, unspecified; I10 Essential (primary) hypertension; E11.9 Type 2 diabetes mellitus without complications; N30.90 Cystitis, unspecified without hematuria; Z88.0 Allergy status to penicillin; Z88.2 Allergy status to sulfonamides; Z90.49 Acquired absence of other specified parts of digestive tract; Z98.891 History of uterine scar from previous surgery; Z85.3 Personal history of malignant neoplasm of breast; Y93.89 Activity, other specified; Y92.89 Other specified places as the place of occurrence of the external cause; Y99.8 Other external cause status; Z68.36 Body mass index [BMI] 36.0-36.9, adult; Z79.899 Other long term (current) drug therapy
CPT/HCPCS: 36415; 70450; 71045; 73020; 73060; 73200; 76775; 80048; 80053; 81001; 82306; 82570; 82607; 82962; 83036; 83735; 83880; 83970; 84100; 84156; 84300; 84443; 84484; 85025; 85379; 85610; 85730; 87040; 93005; 93306; 93886; 96365; 96375; 99291; G0378; J1815; J2405